=== PATIENT | female | born 1995 | race African-American/Black ===

== ENCOUNTER 2017-03-07 15:08 | Emergency (ER) | payer OTHER ==
[2017-03-07 15:16] VITALS: BP 109/74
--- NOTE | 2017-03-07 15:22 | ED ---
Lower Extremity - HPI Summary HPI Summary: 22 YEAR OLD FEMALE PRESENTS WITH COMPLAINS OF RIGHT KNEE PAIN AFTER DISLOCATION. - History of Current Complaint Chief Complaint: UCLowerExtremity Stated Complaint: KNEE INJURY Time Seen by Provider: 03/07/17 15:17 Hx Obtained From: Patient Hx Last Menstrual Period: 03/01/17 Onset of Pain: Hours Severity Initially: Moderate Severity Currently: Moderate Pain Scale Used: 0-10 Numeric - 5 - Allergies/Home Medications Allergies/Adverse Reactions: Allergies Allergy/AdvReac Type Severity Reaction Status Date / Time No Known Allergies Allergy Verified 03/07/17 15:15 Home Medications: Home Medications Control 03/07/17 [History] Ferrous Sulfate [Iron (Ferrous Sulfate)] 50 mg PO 03/07/17 [History] Ibuprofen [Advil] 200 mg PO 03/07/17 [History] PMH/Surg Hx/FS Hx/Imm Hx Previously Healthy: Yes Infectious Disease History: No Infectious Disease History: Denies: Traveled Outside the [place] in Last 30 Days - Social History Alcohol Use: Rare Substance Use Type: Reports: None Smoking Status (MU): Never Smoked Tobacco Review of Systems Constitutional: Negative Eyes: Negative ENT: Negative Cardiovascular: Negative Respiratory: Negative Gastrointestinal: Negative Genitourinary: Negative Musculoskeletal: Negative Skin: Negative Neurological: Negative All Other Systems Reviewed And Are Negative: Yes Physical Exam Triage Information Reviewed: Yes Vital Signs On Initial Exam: Initial Vitals Temp Pulse Resp BP Pulse Ox 37.6 C 90 16 109/74 100 03/07/17 15:11 03/07/17 15:11 03/07/17 15:11 03/07/17 15:11 03/07/17 15:11 Vital Signs Reviewed: Yes Skin: Positive: Warm Head/Face: Positive: Normal Head/Face Inspection Eyes: Positive: Normal ENT: Positive: Normal ENT inspection Cardiovascular: Positive: Normal Abdomen Description: Positive: Nontender Musculoskeletal: Positive: Other - RIGHT KNEE DISLOCATION Diagnostics - Vital Signs Vital Signs Temp Pulse Resp BP Pulse Ox 03/07/17 15:11 37.6 C 90 16 109/74 100 - Laboratory Lab Statement: Any lab studies that have been ordered have been reviewed, and results considered in the medical decision making process. Lower Extremity Course/Dx - Diagnoses Provider Diagnoses: Knee dislocation Discharge - Discharge Plan Condition: Stable Disposition: HOME Prescriptions: Ibuprofen TAB* [Motrin TAB* 800 MG] 800 mg PO Q8H PRN #30 tab PRN Reason: Pain Patient Education Materials: Knee Pain (ED) Referrals: No Primary Care Phys,NOPCP [Primary Care Provider] - Teresa Saul MD [Medical Doctor] -
--- NOTE | 2017-03-07 16:09 | RAD ---
INDICATION: Right knee dislocation. TECHNIQUE: 4 views of the right knee were obtained. FINDINGS: The bones are in normal alignment. No joint effusion or fracture is seen. Joint spaces appear maintained. IMPRESSION: NO EVIDENCE FOR FRACTURE.
== END 2017-03-07 16:19 | disposition home or self-care (01) ==
LOC: UCEAST 15:08
DX: S83.104A Unspecified dislocation of right knee, initial encounter (principal); X58.XXXA Exposure to other specified factors, initial encounter; Y93.9 Activity, unspecified; Y92.9 Unspecified place or not applicable
CPT/HCPCS: 99213; G0463

== ENCOUNTER 2017-03-19 14:20 | Emergency (ER) | payer OTHER ==
--- NOTE | 2017-03-19 18:58 | RAD ---
INDICATION: Intermittent palpitations. COMPARISON: No relevant prior exams available on the [facility] PACS for comparison. TECHNIQUE: Dual energy PA and routine lateral views of the chest were obtained. REPORT: Clear lungs and pleural spaces. Negative for pneumothorax. The heart, pulmonary vasculature, and mediastinal contours are unremarkable. Unremarkable osseous structures and soft tissue contours. IMPRESSION: No evidence for acute intrathoracic disease.
[2017-03-19 19:23] LABS: Hematocrit 43 % (35-47); Hemoglobin 14.2 g/dl (12.0-16.0); Mean Corpuscular HGB Conc 33 g/dl (31-36); Mean Corpuscular Hemoglobin 29 pg (27-31); Mean Corpuscular Volume 85 fL (80-97); Mean Platelet Volume 10 um3 (7.4-10.4); Red Cell Distribution Width 20 % (10.5-15); White Blood Count 8.2 10^3/ul (3.5-10.8)
[2017-03-19 19:34] LABS: Albumin 4.3 g/dL (3.2-5.2); BUN/Creatinine Ratio 7.2 (8-20); Calcium 9.3 mg/dL (8.6-10.3); EGFR African American 109.6 (>60); EGFR Non-African American 85.2 (>60); Globulin 3.6 g/dL (2-4); Magnesium 1.9 mg/dL (1.9-2.7); Potassium 3.5 mmol/L (3.5-5.0); Total Bilirubin 0.2 mg/dL (0.2-1.0); Total Protein 7.9 g/dL (6.4-8.9)
[2017-03-19 20:03] LABS: TSH (Thyroid Stimulating Horm) 2.08 mcIU/mL (0.34-5.60)
[2017-03-19 20:57] VITALS: BP 121/85
--- NOTE | 2017-03-20 02:15 | ED ---
Nikki Armendariz Edward, scribed for Lyndsey Silva MD on 03/19/17 at 1716 . Palpitations / Dysrhythmia - HPI Summary HPI Summary: 22 y/o female presents to the ED c/o palpitations described as heart fluttering starting this morning. Pt also c/o chronic dizziness and lightheadedness that became worse in the past couple of days. The dizziness and lightheadedness is aggravated when the pt stands up too quickly. Associated sx: SOB, mild CP this morning lasting 30 minutes that resolved spontaneously, diffuse body pain, nonproductive cough, and nausea when she eats. Last week the pt also dislocated her R kneecap. Pt states she has been "exhausted" recently. Pt is accompanied by her fiance and [id number]. PMHx anemia (iron deficiency). FHx sister - anemia (not iron deficiency), mother - multiple myeloma. PCP [facility]. Past medications reviewed on visit - pt takes iron supplements and is on control to control her periods. Pt states she gets heavy periods. - History of Current Complaint Chief Complaint: EDDysrhythmPalp Hx Obtained From: Patient Onset/Duration: Lasting Hours - this morning Character: Fluttering Aggravating: Position - Standing up too quickly Alleviating: Nothing Associated Signs & Symptoms: Lightheadedness, Dizzy, Shortness of Breath, Nausea - Allergy/Home Medications Allergies/Adverse Reactions: Allergies Allergy/AdvReac Type Severity Reaction Status Date / Time No Known Allergies Allergy Verified 03/07/17 15:15 PMH/Surg Hx/FS Hx/Imm Hx Previously Healthy: No Endocrine/Hematology History: Reports: Hx Anemia History: Reports: Other Problems/Disorders - Heavy periods Musculoskeletal History: Reports: Hx Orthopedic Injury - Dislocation of R kneecap - Surgical History Surgery Procedure, Year, and Place: N/A Infectious Disease History: Yes Infectious Disease History: Denies: Traveled Outside the [place] in Last 30 Days - Family History Known Family History: Positive: Blood Disorder - Sister - anemia, receives blood transfusions, Other - Mother - multiple myeloma - Social History Alcohol Use: Rare Hx Substance Use: No Substance Use Type: Reports: None Hx Tobacco Use: No Smoking Status (MU): Never Smoked Tobacco Review of Systems Constitutional: Negative Eyes: Negative ENT: Negative Positive: Palpitations. Negative: Chest Pain Positive: Shortness Of Breath, Cough Positive: Nausea - when she eats Genitourinary: Negative Positive: Arthralgia - diffuse body and joint pains Skin: Negative Neurological: Negative Psychological: Normal All Other Systems Reviewed And Are Negative: Yes Physical Exam - Summary Physical Exam Summary: Appearance: Well-appearing, no pain distress, Well-nourished Skin: Warm, color reflects adequate perfusion Head: Normal Head/Face Eyes: Conjunctiva clear ENT: Normal Neck: Supple Respiratory: Lungs clear, Normal breath sounds, no respiratory distress Cardio: RRR, No murmur, pulses normal, brisk capillary refill Abdomen: soft, nontender Bowel sounds: present Musculoskeletal: Strength Intact/ ROM intact Neuro: Alert, muscle tone normal, facial symmetry, speech normal, sensory/motor intact Triage Information Reviewed: Yes Vital Signs On Initial Exam: Initial Vitals Temp Pulse Resp BP Pulse Ox 99.1 F 65 12 118/77 92 03/19/17 14:20 03/19/17 14:20 03/19/17 14:20 03/19/17 14:20 03/19/17 14:20 Vital Signs Reviewed: Yes - [place] Coma Scale Coma Scale Total: 15 Diagnostics - Vital Signs Vital Signs Temp Pulse Resp BP Pulse Ox 03/19/17 16:51 69 20 100 03/19/17 14:20 99.1 F 65 12 118/77 92 - Laboratory Lab Results: Lab Results 03/19/17 03/19/17 03/19/17 Range/Units 18:55 18:55 18:55 WBC 8.2 (3.5-10.8) 10^3/ul RBC 5.00 (4.0-5.4) 10^6/ul Hgb 14.2 (12.0-16.0) g/dl Hct 43 (35-47) % MCV 85 (80-97) fL MCH 29 (27-31) pg MCHC 33 (31-36) g/dl RDW 20 H (10.5-15) % Plt Count 135 L (150-450) 10^3/ul MPV 10 (7.4-10.4) um3 Neut % (Auto) 70.2 (38-83) % Lymph % (Auto) 23.1 L (25-47) % [place] % (Auto) 4.0 (1-9) % Eos % (Auto) 1.9 (0-6) % Baso % (Auto) 0.8 (0-2) % Absolute Neuts (auto) 5.7 (1.5-7.7) 10^3/ul Absolute Lymphs (auto) 1.9 (1.0-4.8) 10^3/ul Absolute Monos (auto) 0.3 (0-0.8) 10^3/ul Absolute Eos (auto) 0.2 (0-0.6) 10^3/ul Absolute Basos (auto) 0.1 (0-0.2) 10^3/ul Absolute Nucleated RBC 0.01 10^3/ul Nucleated RBC % 0.1 INR (Anticoag Therapy) (0.89-1.11) D-Dimer, Quantitative (Less Than 230) ng/mL Sodium 135 (133-145) mmol/L Potassium 3.5 (3.5-5.0) mmol/L Chloride 105 (101-111) mmol/L Carbon Dioxide 24 (22-32) mmol/L Anion Gap 6 (2-11) mmol/L BUN 6 (6-24) mg/dL Creatinine 0.83 (0.51-0.95) mg/dL Est GFR ( Amer) 109.6 (>60) Est GFR (Non-Af Amer) 85.2 (>60) BUN/Creatinine Ratio 7.2 L (8-20) Glucose 107 H (70-100) mg/dL Lactic Acid 1.4 (0.5-2.0) mmol/L Calcium 9.3 (8.6-10.3) mg/dL Magnesium 1.9 (1.9-2.7) mg/dL Total Bilirubin 0.20 (0.2-1.0) mg/dL AST 15 (13-39) U/L ALT 10 (7-52) U/L Alkaline Phosphatase 54 (34-104) U/L Total Creatine Kinase 186 (10-223) U/L CK-MB (CK-2) 0.6 (0.6-6.3) ng/mL Troponin I 0.00 (<0.04) ng/mL Total Protein 7.9 (6.4-8.9) g/dL Albumin 4.3 (3.2-5.2) g/dL Globulin 3.6 (2-4) g/dL Albumin/Globulin Ratio 1.2 (1-3) TSH 2.08 (0.34-5.60) mcIU/mL 03/19/17 Range/Units 18:55 WBC (3.5-10.8) 10^3/ul RBC (4.0-5.4) 10^6/ul Hgb (12.0-16.0) g/dl Hct (35-47) % MCV (80-97) fL MCH (27-31) pg MCHC (31-36) g/dl RDW (10.5-15) % Plt Count (150-450) 10^3/ul MPV (7.4-10.4) um3 Neut % (Auto) (38-83) % Lymph % (Auto) (25-47) % [place] % (Auto) (1-9) % Eos % (Auto) (0-6) % Baso % (Auto) (0-2) % Absolute Neuts (auto) (1.5-7.7) 10^3/ul Absolute Lymphs (auto) (1.0-4.8) 10^3/ul Absolute Monos (auto) (0-0.8) 10^3/ul Absolute Eos (auto) (0-0.6) 10^3/ul Absolute Basos (auto) (0-0.2) 10^3/ul Absolute Nucleated RBC 10^3/ul Nucleated RBC % INR (Anticoag Therapy) 0.96 (0.89-1.11) D-Dimer, Quantitative < 200 (Less Than 230) ng/mL Sodium (133-145) mmol/L Potassium (3.5-5.0) mmol/L Chloride (101-111) mmol/L Carbon Dioxide (22-32) mmol/L Anion Gap (2-11) mmol/L BUN (6-24) mg/dL Creatinine (0.51-0.95) mg/dL Est GFR ( Amer) (>60) Est GFR (Non-Af Amer) (>60) BUN/Creatinine Ratio (8-20) Glucose (70-100) mg/dL Lactic Acid (0.5-2.0) mmol/L Calcium (8.6-10.3) mg/dL Magnesium (1.9-2.7) mg/dL Total Bilirubin (0.2-1.0) mg/dL AST (13-39) U/L ALT (7-52) U/L Alkaline Phosphatase (34-104) U/L Total Creatine Kinase (10-223) U/L CK-MB (CK-2) (0.6-6.3) ng/mL Troponin I (<0.04) ng/mL Total Protein (6.4-8.9) g/dL Albumin (3.2-5.2) g/dL Globulin (2-4) g/dL Albumin/Globulin Ratio (1-3) TSH (0.34-5.60) mcIU/mL Result Diagrams: 03/19/17 18:55 03/19/17 18:55 Lab Statement: Any lab studies that have been ordered have been reviewed, and results considered in the medical decision making process. - Radiology CXR Xray Interpretation: No Acute Changes - No evidence for acute intrathoracic disease. Radiology Interpretation Completed By: Radiologist - Additional Comments Diagnostic Additional Comments: EKG - 14:27 - Sinus arrhythmia @ 74 BPM. NORMAL AV, IV, QTC and AXIS. NO PRIOR EKG TO COMPARE Re-Evaluation - Re-Evaluation 1 Re-Evaluation Time: 20:51 Change: Improved Comment: Discuss plan of care. Pt reports no pain or palpitations. Pt will be d/ c home. Pt understands and agrees to f/u with Dr. Gregory. Course/Dx - Course Assessment/Plan: 22 y/o female presents to the ED c/o palpitations described as heart fluttering starting this morning. Pt also c/o chronic dizziness and lightheadedness that became worse in the past couple of days. The dizziness and lightheadedness is aggravated when the pt stands up too quickly. Associated sx: SOB, mild CP this morning lasting 30 minutes that resolved spontaneously, diffuse body pain, nonproductive cough, and nausea when she eats. Last week the pt also dislocated her R kneecap. Pt states she has been "exhausted" recently. Pt is accompanied by her fiance and [id number]. PMHx anemia (iron deficiency) . FHx sister - anemia (not iron deficiency), mother - multiple myeloma. PCP [facility]. Past medications reviewed on visit - pt takes iron supplements and is on control to control her periods. Pt states she gets heavy periods. EKG - 14:27 - Sinus arrhythmia @ 74 BPM. NORMAL AV, IV, QTC and AXIS. NO PRIOR EKG TO COMPARE. CXR SHOWS No evidence for acute intrathoracic disease. TEST RESULTS WNL. Pt will be d/c home with f/u with Dr. Gregory. On re-eval the pt reports no pain or palpitations. Pt understands and agrees. - Diagnoses Provider Diagnoses: Palpitations Discharge - Discharge Plan Condition: Stable Disposition: HOME Patient Education Materials: Palpitations (ED) Referrals: Lester Gregory MD [Medical Doctor] - 2 Days (PLEASE F/U IN 2 DAYS) Additional Instructions: PLEASE RETURN TO THE ED FOR RETURN OR WORSENING SYMPTOMS The documentation as recorded by the Nikki huynh Edward accurately reflects the service I personally performed and the decisions made by , Lyndsey Silva MD.
== END 2017-03-19 20:57 | disposition home or self-care (01) ==
LOC: ED 14:20
DX: R00.2 Palpitations (principal); R42 Dizziness and giddiness; R06.02 Shortness of breath; R11.0 Nausea
CPT/HCPCS: 36415; 71020; 80053; 82550; 82553; 83605; 83735; 84443; 84484; 85025; 85379; 85610; 93005; 99283

== ENCOUNTER 2017-07-01 21:10 | Emergency (ER) | payer OTHER ==
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
--- OUTSIDE RECORDS SUMMARY | 2017-07-01 21:16 | XMS REPORT ---
:1995 External Reference #:[id number] Author Organization [facility] Address [address] [address] Phone [phone] Care Team Providers Name Role Phone Lester Gregory MD Primary Care Physician Unavailable Payers Type Date Identification Numbers Payment Provider Subscriber Commercial Effective: Policy Number: [id number] [employer]/Robbi Dickerson 2017 [facility] PayID: [id number] [address] [address] [place] [address] Problems Date Description Provider Status Onset: 04/17/2017 [...] apply to M54.6 Emil 2018 s affected [facility], area 12 M.D. hours on, 12 hours off Iron Slow 02/07/ Active Tablets 143(45Fe) 30tabs 1 tab po in D50.9 Zsofia Release 2017 ER mg the Franky, morning. NURSE ASSESSOR Norethindrone 01/10/ Active Tablets 1-20mg-mcg 84tabs take as N92.0 Zsofia Acetate/Ethinyl 2017 instructed Franky, Estradiol/Megan NURSE ASSESSOR us Fumarate N92.0 Ranitidine HCL Active Unknown Cymbalta Active Unknown Vitamin D 02/07/2017 - Hx Capsules 34127Gv 8caps take 1 E55. Zsofia (Ergocalciferol 06/17/2016 it capsule a 9 [facility] WilkinsP ) week for 8 weeks Vitamin D3 01/10/2017 - Hx Capsules 5000Uni 90cap 1 by mouth E55. Zsofia Maximum 02/07/2017 t s every day 9 Franky, [facility] Strength Ferrous 01/10/2017 - Hx Tablets 324(37. 90tab 1 by mouth D50. Zsofia Gluconate 02/10/2017 5Fe) mg s every day 9 Franky, [facility] Ibuprofen - Hx Capsules 200mg as needed Unknown 06/27/2017 Vital Signs Date Vital Result Comment 06/29/2017 Height 64 inches 5'4" Weight 141.00 lb Heart Rate 80 /min Respiratory Rate 15 /min Pain Level 3 BMI (Body Mass Index) 24.2 kg/m2 06/27/2017 Height 64 inches 5'4" Weight 141.00 [...] Test Result H/L Range Note Laboratory test 06/28/2017 Hla B27 <pending> finding Laboratory test 06/28/2017 Neutrophil Cytoplasmic <pending> finding AB Angiotensin Converting Enzyme <pending> Aso (Antistreptolysin O) Titer Negative IU/mL <200 Iu/mL 1 CBC Auto Diff 06/28/2017 White Blood Count 10.8 10^3/uL 3.5-10.8 Red Blood Count 4.63 10^6/uL 4.0-5.4 Hemoglobin 14.5 g/dL 12.0-16.0 Hematocrit 43 % 35-47 Mean Corpuscular Volume 92 fL 80-97 Mean Corpuscular Hemoglobin 31 pg 27-31 Mean Corpuscular HGB Conc 34 g/dL 31-36 Red Cell Distribution Width 13 % 10.5-15 Platelet Count 152 10^3/uL 150-450 Mean Platelet Volume 9 um3 7.4-10.4 Abs Neutrophils 8.4 10^3/uL High 1.5-7.7 Abs Lymphocytes 1.5 10^3/uL 1.0-4.8 Abs Monocytes 0.6 10^3/uL 0-0.8 Abs Eosinophils 0.2 10^3/uL 0-0.6 Abs Basophils 0 10^3/uL 0-0.2 Abs Nucleated RBC 0 10^3/uL Granulocyte % 77.7 % 38-83 Lymphocyte % 14.3 % Low 25-47 Monocyte % 5.8 % 1-9 Eosinophil % 1.8 % 0-6 Basophil % 0.4 % 0-2 Nucleated Red Blood Cells % 0.1 Laboratory test finding 06/28/2017 Erythrocyte Sed Rate 14 mm/Hr 0-14 2 C Reactive Protein <pending> Sickle Cell Screen Negative Negative 3 CK Isoenzymes <pending> Rheumatoid Factor <pending> Free T4 (Free Thyroxine) <pending> Thyroperoxidase AB <pending> Laboratory test finding 12/27/2016 Vitamin D Total 25(Oh) 10.4 ng/mL Low 30-50 4 Iron & Iron Binding 12/27/2016 Iron 22 g/dL Low 50-212 4 Capacity Unsaturated Iron Binding 453 g/dL 4 Total Iron Binding Capacity 475 g/dL High 250-450 4 % Iron Saturation 5 % Low 15-55 4 Laboratory test finding 12/27/2016 TSH (Thyroid Stim Horm) 0.70 mcIU/mL 0.34-5.60 4 Vitamin B12 501 pg/mL 180-914 4, 5 CBC Auto Diff 12/27/2016 White Blood Count 5.3 10^3/uL 3.5-10.8 4 Red Blood Count 4.39 10^6/uL 4.0-5.4 4 Hemoglobin 10.0 g/dL Low 12.0-16.0 4 Hematocrit 33 % Low 35-47 4 Mean Corpuscular Volume 76 fL Low 80-97 4 Mean Corpuscular Hemoglobin 23 pg Low 27-31 4 Mean Corpuscular HGB Conc 30 g/dL Low 31-36 4 Red Cell Distribution Width 17 % High 10.5-15 4 Platelet Count 147 10^3/uL Low 150-450 4 Mean Platelet Volume 10 um3 7.4-10.4 4 Abs Neutrophils 3.0 10^3/uL 1.5-7.7 4 Abs Lymphocytes 1.6 10^3/uL 1.0-4.8 4 Abs Monocytes 0.4 10^3/uL 0-0.8 4 Abs Eosinophils 0.1 10^3/uL 0-0.6 4 Abs Basophils 0 10^3/uL 0-0.2 4 Abs Nucleated RBC 0 10^3/uL 4 Granulocyte % 57.6 % 38-83 4 Lymphocyte % 31.0 % 25-47 4 Monocyte % 8.0 % 1-9 4 Eosinophil % 2.5 % 0-6 4 Basophil % 0.9 % 0-2 4 Nucleated Red Blood Cells % 0 4 1 Normal values may vary with age, season and geographic area. Titers above upper limits may be indicative of infection, however only a two dilution rise in titer is required to be considered significant. ASO titer will usually rise above upper limits within one week of exposure, increase to peak levels at 3-5 weeks and return to baseline level at 6-12 twelve months. 2 Please check labs this week 3 Please check labs this week 4 has f/u in 3 days 5 Normal Range 180 to 914 Indeterminate Range 145 to 180 Deficient Range <145 Procedures Description No Information Encounters Type Date Location Provider CPT E/M Dx Office Visit 05/18/2017 [facility] [address] Q66.89 2:30p Of [facility] Office Visit 04/20/2017 [place] [address] Q66.89 1:45p Of C.M.AEvelio Office Visit 04/17/2017 [place] [address] M22.01 10:15a Of [facility]. Office Visit 03/29/2017 [facility] Srini [place] [address]68 Q66.89 10:30a Of [facility] Office Visit 03/15/2017 [place] [address] M25.561 1:30p Of C.M.A. M22.01 M21.40 Office Visit 02/07/2017 11:40a [facility] - [place] [address] E55.9 D50.9 N92.0 Office Visit 01/10/2017 9:40a [facility] - Kirstie WilkinsB[place] [address] N92.0 E55.9 Office Visit 12/27/2016 11:00a [facility] Cynthiamegan Wilkins, [place] [address] R53[address] N92.0 E55.9 R48.8 Plan of Care 06/27/2017 - Emil Ferreira M.D.M54.2 AnhiafaxrhpA19.6 Pain in thoracic spineNew Medication:Lidoderm 5 %D64.9 Anemia, pypayqrnvnxB11.4 Inflammatory sblmbhmnyyzhiptH62.8 Other disturbances of skin aftubvbjgX67.1 MyalgiaFollow up: Follow up in 3 weeks or sooner if needed
[2017-07-01 21:22] VITALS: BP 133/70
[2017-07-01] MEDS ORDERED: predniSONE TAB* 20 MG PO ONE (21:45)
[2017-07-01] MEDS ORDERED: Benzonatate CAP* 100 MG PO ONE ×2 (21:46→21:47)
[2017-07-01] MEDS ORDERED: Acetaminop/Codeine 30 MG TAB* 1 TAB (300 MG/30 MG) PO ONE (21:48)
--- NOTE | 2017-07-01 21:56 | UC ---
Alex Armendariz Stephanie, scribed for Zachary Franks MD on 07/01/17 at 2147 . Respiratory Complaint HPI - HPI Summary HPI Summary: The pt is a 22 y/o F presenting to with c/o cough that began in march 2017 but is worse today. Symptoms include CP with cough, SOB and throat itchiness. The pt denies throat and ankle swelling. Denies feeling like a narrowing airway. The pt is afraid to take a deep breath because it initiates a cough. The pt took one course of antibiotics ending last week. She rates the pain as a 4 in severity. - History of Current Complaint Chief Complaint: UCRespiratory Stated Complaint: COUGH Time Seen by Provider: 07/01/17 21:27 Hx Obtained From: Patient, Family/Warehouse Director Hx Last Menstrual Period: 3 wks ago Onset/Duration: Lasting Weeks, Still Present - approximately 13, Worse Since - today Severity Currently: Mild Pain Intensity: 4 Pain Scale Used: 0-10 Numeric Character: Cough: Nonproductive Aggravating Factors: Nothing Alleviating Factors: Nothing Associated Signs And Symptoms: Negative: Wheezing - Allergies/Home Medications Allergies/Adverse Reactions: Allergies Allergy/AdvReac Type Severity Reaction Status Date / Time No Known Allergies Allergy Verified 07/01/17 21:23 PMH/Surg Hx/FS Hx/Imm Hx Previously Healthy: Yes - Pt denies past medical history. Respiratory History: Other - Negative: asthma Other Respiratory History: COUGH - Surgical History Surgical History: None Surgery Procedure, Year, and Place: no surg hx - Family History Known Family History: Positive: Diabetes, Blood Disorder - Sister - anemia, receives blood transfusions, Other - Mother - multiple myeloma - Social History Occupation: Student Lives: Dormitory/Roommates Alcohol Use: Occasionally Substance Use Type: None Smoking Status (MU): Never Smoked Tobacco Have You Smoked in the Last Year: No Review of Systems ENT: Other - throat itchiness Respiratory: Shortness Of Breath, Cough Cardiovascular: Chest Pain All Other Systems Reviewed And Are Negative: Yes Physical Exam Triage Information Reviewed: Yes Vital Signs: Initial Vital Signs Temp 98.1 F 07/01/17 21:18 Pulse 87 07/01/17 21:18 Resp 18 07/01/17 21:18 BP 133/70 07/01/17 21:18 Pulse Ox 100 07/01/17 21:18 Vital Signs Reviewed: Yes - Additional Comments General: well-appearing, no pain distress Skin: warm, color reflects adequate perfusion, dry Head: normal Eyes: EOMI, BLAIRE ENT: TMs nml, Posterior pharynx open, uvula midline, voice is quiet. Neck: supple, nontender Respiratory: CTA, breath sounds present, no stridor Cardiovascular: RRR Abdomen: soft, nontender Bowel: present Musculoskeletal: normal, strength/ROM intact Neurological: normal, sensory/motor intact, A&O x3 Psychological: affect/mood appropriate Diagnostic Evaluation - Laboratory O2 Sat by Pulse Oximetry: 100 Respiratory Course/Dx - Course Course Of Treatment: Medications reviewed. PATIENT REPORTS A CHRONIC COUGH SINCE MAR 2017. SHE REPORTS BEING EVALUATED FOR THE COUGH. IT IS WORSE TONIGHT. SHE DENIES FEELING LIKE HERE AIRWAY IS CLOSING AND DENIES WHEEZING OR STRIDOR. WE DISCUSSED GOING TO THE ED FOR ANY AIRWAY COMPROMISE. F/U PMD; GO TO ED IF WORSE. - Differential Dx/Diagnosis Provider Diagnoses: COUGH Discharge - Discharge Plan Condition: Stable Disposition: HOME Prescriptions: Acetaminop/Codeine 30 MG TAB* [Tylenol/Codeine 30 MG TAB*] 1 tab PO Q6H PRN #15 tab MDD 4 PRN Reason: Cough Benzonatate CAP* [Tessalon 100 MG CAP*] 100 mg PO TID PRN #15 cap PRN Reason: Cough Patient Education Materials: Acute Cough (ED) Referrals: Lester Gregory MD [Primary Care Provider] - Additional Instructions: FOLLOW UP WITH YOUR DOCTOR. GO TO THE EMERGENCY DEPARTMENT FOR ANY WORSENING OF YOUR CONDITION; YOU FEEL LIKE YOUR AIRWAY IS CLOSING OR QUESTIONS OR CONCERNS. The documentation as recorded by the Alex huynh Stephanie accurately reflects the service I personally performed and the decisions made by me, Zachary Franks MD.
== END 2017-07-01 22:09 | disposition home or self-care (01) ==
LOC: UCEAST 21:10
DX: R05 Cough (principal); R07.89 Other chest pain; R06.02 Shortness of breath
CPT/HCPCS: 99213; A9270-GY; G0463; J7512

== ENCOUNTER 2017-08-01 10:05 | Emergency (ER) | payer OTHER ==
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
[2017-08-01] MEDS ORDERED: predniSONE TAB* 20 MG PO ONE (12:12)
[2017-08-01] MEDS ORDERED: Albuterol/Ipratropium NEB.SOL* Albuterol 2.5 MG/Ipratropium 0.5 MG 3 ML INH ONE (12:12)
--- NOTE | 2017-08-01 13:44 | ED ---
Flaca Armendariz Julia, scribed for Ramin Philippe on 08/01/17 at 1229 . Respiratory - HPI Summary HPI Summary: This patient is a 22 year old F presenting to [facility] accompanied by her mother with a chief complaint of SOB since 10:00 after a pulmonary function test. Patient reports current chest tightness and cough for months. Patient rates pain severity 7/10. She had two doses of albuterol via nebulizer treatment without relief. Patient is currently taking oral contraceptives. - History of Current Complaint Chief Complaint: EDAsthma Stated Complaint: DIFFICULTY BREATHING Time Seen by Provider: 08/01/17 12:03 Hx Obtained From: Patient Onset/Duration: Lasting Hours Timing: Constant Pain Intensity: 7 Sputum Amount: None Aggravating Factor(s): Other - recent pulmonary function test Alleviating Factor(s): Nothing Associated Signs and Symptoms: Chest Pain with Cough - Allergy/Home Medications Allergies/Adverse Reactions: Allergies Allergy/AdvReac Type Severity Reaction Status Date / Time No Known Allergies Allergy Verified 07/01/17 21:23 PMH/Surg Hx/FS Hx/Imm Hx Endocrine/Hematology History: Reports: Hx Anemia Denies: Hx Diabetes Cardiovascular History: Denies: Hx Hypertension, Hx Pacemaker/ICD Respiratory History: Denies: Hx Asthma History: Reports: Other Problems/Disorders - Heavy periods Musculoskeletal History: Reports: Hx Orthopedic Injury - Dislocation of R kneecap Sensory History: Reports: Hx Contacts or Glasses Denies: Hx Hearing Aid, Other Sensory Impairments Opthamlomology History: Reports: Hx Contacts or Glasses Denies: Other Sensory Impairments Neurological History: Reports: Hx Headaches Psychiatric History: Reports: Hx Anxiety Denies: Hx Panic Disorder - Surgical History Surgery Procedure, Year, and Place: no surg hx Infectious Disease History: No Infectious Disease History: Denies: Traveled Outside the [place] in Last 30 Days - Family History Known Family History: Positive: Diabetes, Blood Disorder - Sister - anemia, receives blood transfusions, Other - Mother - multiple myeloma - Social History Alcohol Use: Occasionally Hx Substance Use: No Substance Use Type: Reports: None Hx Tobacco Use: No Smoking Status (MU): Never Smoked Tobacco Have You Smoked in the Last Year: No Review of Systems Cardiovascular: Other - chest tightness Positive: Shortness Of Breath, Cough All Other Systems Reviewed And Are Negative: Yes Physical Exam - Summary Physical Exam Summary: Appearance: Well appearing, no pain distress Skin: warm, dry, reflects adequate perfusion Head/face: normal Eyes: EOMI, BLAIRE ENT: normal Neck: supple, non-tender Respiratory: CTA, breath sounds present, no wheezes Cardiovascular: RRR, pulses symmetrical Abdomen: non-tender, soft Bowel: present Musculoskeletal: normal, strength/ROM intact Neuro: normal, sensory motor intact, A&Ox3 Triage Information Reviewed: Yes Vital Signs On Initial Exam: Initial Vitals Temp Pulse Resp BP Pulse Ox 98.9 F 113 22 129/83 99 08/01/17 10:07 08/01/17 10:07 08/01/17 10:07 08/01/17 10:07 08/01/17 10:07 Vital Signs Reviewed: Yes Diagnostics - Vital Signs Vital Signs Temp Pulse Resp BP Pulse Ox 08/01/17 10:07 98.9 F 113 22 129/83 99 - Laboratory Lab Statement: Any lab studies that have been ordered have been reviewed, and results considered in the medical decision making process. Disposition - Course Course Of Treatment: Patient presnts with SOB since 10:00 after a pulmonary function test. Patient reports current chest tightness and cough for months. She had two doses of albuterol via nebulizer treatment without relief. Patient is currently taking oral contraceptives. Patient is given Prednisone and 2 albuteral treatments vis nebulizer. Patient left AMA without recieving chest imaging. - Differential Dx - Cardiopulmonary Differential Diagnoses - Cardiopulmonary: Acute Dyspnea, Asthma, Bronchitis, Pulmonary Embolism - Diagnoses Provider Diagnoses: Bronchospasm Discharge - Discharge Plan Condition: Stable Disposition: AGAINST MEDICAL ADVICE Prescriptions: Albuterol HFA INHALER* [Ventolin HFA Inhaler*] 2 puff INH Q6H PRN #1 mdi MDD 4 PRN Reason: Sob/Wheezing predniSONE TAB* [Deltasone TAB*] 40 mg PO DAILY #5 tab Patient Education Materials: Bronchospasm (ED) Referrals: Lester Gregory MD [Primary Care Provider] - 3 Days The documentation as recorded by the Flaca huynh Julia accurately reflects the service I personally performed and the decisions made by Denae covarrubias Emmanuel.
[2017-08-01 13:57] VITALS: BP 128/76
== END 2017-08-01 13:00 | disposition left against medical advice (07) ==
LOC: ED 10:05
DX: J98.01 Acute bronchospasm (principal); R06.02 Shortness of breath; R07.9 Chest pain, unspecified; D64.9 Anemia, unspecified
CPT/HCPCS: 94640; 99282; A9270-GY; J7512

== ENCOUNTER 2017-08-01 19:41 | Emergency (ER) | payer OTHER ==
--- OUTSIDE RECORDS SUMMARY | 2017-08-01 19:48 | XMS REPORT ---
:1995 External Reference #:[id number] Author Organization [facility] [employer] Address [address] [address] Phone [phone] Care Team Providers Name Role Phone Lester Gregory MD Primary Care Physician Unavailable Payers Type Date Identification Numbers Payment Provider Subscriber Commercial Effective: Policy Number: [id number] [employer] Christen Dickerson 2017 Medicaid PayID: [id number] [address] [address] [place] [address] Problems Date Description Provider Status Onset: 04/17/2017 [...] Form Strength Qnty SIG Indications Ordering Provider Meloxicam 08/01/ Active Tablets 7.5mg 30tab take one M35.7 Emil 2018 s tab twice Hanna, daily as M.D. needed for pain, avoid other nsaids Aspercreme 07/09/ Active Cream 4% 6unit apply twice M54.6 Emil W/Lidocaine 2018 s daily to Hanna, the painful M.D. joints as needed Iron Slow 02/07/ Active Tablets ER 143(45Fe) 30tab 1 tab po in D50.9 Zsofia Release 2017 mg s the Franky, morning. [employer]ATOR Ranitidine HCL / Active 150mg bid Unknown 0000 Cymbalta / Active 30mg has not Unknown 0000 started taking Catalina Fe 06/30 / Active Tablets 1-20mg-mcg qd Unknown 0000 Lidoderm 06/27/ Hx Patches 5% 30uni 1 apply to M54.6 Emil 2018 - ts affected Hanna, 07/09/ area 12 M.D. 2018 hours on, 12 hours off Vitamin D 02/07/ Hx Capsules [id number] 8caps take 1 E55.9 Zsofia (Ergocalciferol 2017 - capsule a Franky, ) 06/17/ week for 8 SKOOG OPERATOR 2017 weeks Vitamin D3 01/10/ Hx Capsules 5000Unit 90cap 1 by mouth E55.9 Zsofia Maximum 2017 - s every day Franky, Strength 02/07/ SKOOG OPERATOR 2016 Ferrous 01/10/ Hx Tablets 324(37.5Fe 90tab 1 by mouth D50.9 Zsofia Gluconate 2017 - ) mg s every day Franky, 02/10/ SKOOG OPERATOR 2017 Norethindrone 01/10/ Hx Tablets 1-20mg-mcg 84tab take as N92.0 Zsofia Acetate/Ethinyl 2017 - s instructed Franky Estradiol/Megan 07/12/ SKOOG OPERATOR us Fumarate 2017 N92.0 Ibuprofen - 06/27/2017 Hx Capsules 200mg as needed Unknown Vital Signs Date Vital Result Comment 08/01/2017 Height 64 inches 5'4" Weight 140.00 lb Heart Rate 120 /min BP Systolic Sitting 138 mmHg BP Diastolic Sitting 80 mmHg Respiratory Rate 14 /min Body Temperature 98.5 F Pain Level 6 BMI (Body Mass Index) 24.0 kg/m2 07/13/2017 Height 64 inches 5'4" Weight 137.38 [...] Creatine Kinase BB 0 % 0 6 Hla B27 06/28/2017 Hla B27 Negative 7 Hla B27 Interp See Comment 8 Connective Tissue Panel 06/28/2017 Anti-Nuclear Antibody 0.7 U 9 Cyclic Citrullinated Peptide <15.6 U 10 Interpretation See Comment 11 Neutrophil Cytoplasmic AB 06/28/2017 C-Anca Negative Negative P-Anca Negative Negative 12 Laboratory test finding 06/28/2017 Angiotensin Converting Enzyme 12 U/L 8 - 53 13 Aso (Antistreptolysin O) Titer Negative IU/mL <200 Iu/mL 14 CBC Auto Diff 06/28/2017 White Blood Count [...] 0-2 Nucleated Red Blood Cells % 0.1 Iron & Iron Binding Capacity 06/28/2017 Iron 108 g/dL 50-212 Unsaturated Iron Binding 308 g/dL Total Iron Binding Capacity 416 g/dL 250-450 % Iron Saturation 26 % 15-55 Laboratory test finding 06/28/2017 Erythrocyte Sed Rate 14 mm/Hr 0-14 15 C Reactive Protein < 1.00 mg/L < 5.00 16 Sickle Cell Screen Negative Negative 17 Celiac Panel 06/28/2017 Tissue Transglutaminase IgA Ab <1.2 U/mL 18 Immunoglobulin A 141 mg/dL 61 - 356 Celiac Interpretation See Comment 19 Celiac Hla 06/28/2017 Hla-Dqa1 SEE BELOW 20 Hla-DQB1 SEE BELOW 21 Celiac Gene Pairs Present? Yes Celiac Gene Interpretation See Comment 22 Iron & Iron Binding Capacity 12/27/2016 Iron 22 g/dL Low 50-212 23 Unsaturated Iron Binding 453 g/dL 23 Total Iron Binding Capacity 475 g/dL High 250-450 23 % Iron Saturation 5 % Low 15-55 23 Laboratory test finding 12/27/2016 TSH (Thyroid Stim [...] Nucleated Red Blood Cells % 0 23 Laboratory test finding 12/27/2016 Vitamin D Total 25(Oh) 10.4 ng/mL Low 30-50 23 1 Test Performed by: [place] [address] 2 Please check labs this week 3 Please check labs this week 4 RESULT: If CK result is <100, isoenzyme will not be performed. Test Performed by: [address] [address] 5 MM=48% Macro Type 1=48% Macro Type 2=4% 6 Test Performed by: [facility] - [address] [address] 7 REFERENCE VALUE Not Applicable 8 RESULT: HLA-B27 antigen was not detected. ADDITIONAL INFORMATION Method: Flow Cytometry Performing Laboratory IA# [id number] Test Performed by: [address] [address] 9 REFERENCE VALUE <=1.0 (Negative) 10 REFERENCE VALUE <20.0 (Negative) 11 Tests for antibodies to dsDNA and AMIRA antigens are not performed automatically unless the RONDA result is > or= 3.0 U. Studies performed at [facility] indicate that positive RONDA results <3.0 U are rarely accompanied by positive second order tests. Test Performed by: [place] [address] 12 Negative for cANCA and pANCA patterns by immunofluorescence. ADDITIONAL INFORMATION This test was developed and its performance characteristics determined by [facility] in a manner consistent with CLIA requirements. This test has not been cleared or approved by the U.S. Food and Drug Administration. Test Performed by: [place] [address] 13 Test Performed by: [place] [address] 14 Normal values may vary with age, season and geographic area. Titers above upper limits may be indicative of infection, however only a two dilution rise in titer is required to be considered significant. ASO titer will usually rise above upper limits within one week of exposure, increase to peak levels at 3-5 weeks and return to baseline level at 6-12 twelve months. 15 Please check labs this week 16 Acute inflammation: >10.00 17 Please check labs this week 18 REFERENCE VALUE <4.0 (Negative) Test Performed by: [place] [address] 19 Negative serology. Celiac disease unlikely. However, approximately 10% of patients with celiac disease are seronegative. Also, patients who are already adhering to a gluten-free diet may be seronegative. If celiac disease is highly clinically suspected, consider HLA-DQ typing. Test Performed by: [place] [address] 20 RESULT: ,03 REFERENCE VALUE Not Applicable 21 RESULT: 03:02,05:03 DQ Serologic Equivalent: 8,5 REFERENCE VALUE Not Applicable 22 These genes are permissive for celiac disease. The absence of HLA celiac permissive genes would make the presence of celiac disease unlikely. However, these genes can also be present in the normal population. ADDITIONAL INFORMATION Method: Molecular typing of HLA antigens performed using reverse SSOP and/or SSP methods, reported as serological equivalents and low to medium resolution molecular values. Performing Laboratory CLIA# [id number] Test Performed by: [address] [address] 23 has f/u in 3 days 24 Normal Range 180 to 914 Indeterminate Range 145 to 180 Deficient Range <145 Procedures Description No Information Encounters Type Date Location Provider CPT E/M Dx Office Visit 08/01/2017 [facility] Services Emil Ferreira M.D. 28776 M54.6 1:20p Of Shop Assistant D64.9 R51 M35.7 Office Visit 07/13/2017 10:00a [facility] [address] R05 Services Of Shop Assistant R06.83 Office Visit 06/29/2017 1:15p [place] [address] Q66.89 [facility] Office Visit 06/27/2017 2:00p [facility] Services Emil Ferreira M.D. 37709 M54.2 Of Shop Assistant M54.6 D64.9 R20.8 M79.1 R21 Office Visit 05/18/2017 2:30p [place] [address] Q66.89 Of [facility] Office Visit 04/20/2017 1:45p [place] [address] Q66.89 Of [facility] Office Visit 04/17/2017 10:15a [place] [address] M22.01 Of [facility] Office Visit 03/29/2017 10:30a [facility] Srini [place] [address] Q66.89 Of [place] Office Visit 03/15/2017 1:30p [place] [address] M25.561 Of [place] M22.01 M21.40 Office Visit 02/07/2017 11:40a [facility] Internal Medicine - Kaitlynnofimegan Wilkins, [facility] [address] E55.9 D50.9 N92.0 Office Visit 01/10/2017 9:40a [facility] Internal Medicine - Kaitlynnofia Franky, [employer]OOG OPERATOR [address] N92.0 E55.9 Office Visit 12/27/2016 11:00a [facility] Internal Medicine Kirstie Wilkins, SKOOG OPERATOR [address] R53[address] N92.0 E55.9 R48.8 Plan of Care Future Appointment(s):09/12/2017 11:00 am - Emil Ferreira M.D. at [facility]08/06/2017 11:00 am - Latrice Masters NEvelioPEvelio at [facility]08/01/2017 - Emil Ferreira M.D.M54.6 Pain in thoracic kboqaU12.9 Anemia, unspecifiedReferral:Dwaine Turpin MD, [id number] HeadacheNew Xrays:MRI Brain W/OM35.7 Hypermobility syndromeNew Medication: Meloxicam 7.5 mgFollow up:Follow up in 6 weeks or sooner if needed
[2017-08-01] MEDS ORDERED: Albuterol/Ipratropium NEB.SOL* Albuterol 2.5 MG/Ipratropium 0.5 MG 3 ML INH ONE (20:02)
[2017-08-01] MEDS ORDERED: Albuterol HFA INHALER* 8 gm MDI INH ONE (20:39)
[2017-08-01 20:59] VITALS: BP 128/81
--- NOTE | 2017-08-02 00:58 | ED ---
Peterson Armendariz Jennifer, scribed for Cameron Santos MD on 08/01/17 at 2007 . Asthma - HPI Summary HPI Summary: The patient is a 22 year old female who presents with shortness of breath and wheezing that began at 09:00 this morning. The patient went for a methacholine challenge and was diagnosed with asthma. She took 60 mg of Prednisone. The patient additionally complains of chest tightness and chest pain that feels like its burning. She additionally complains of numbness in both arms. - History of Current Complaint Chief Complaint: EDAsthma Stated Complaint: DIFF BREATHING Time Seen by Provider: 08/01/17 19:54 Hx Obtained From: Patient Hx Last Menstrual Period: 3 wks ago Onset/Duration: Sudden Onset, Lasting Hours - Began this morning at 09:00, Still Present Timing: Constant Initial Severity: Mild Current Severity: Mild Pain Intensity: 0 Pain Scale Used: 0-10 Numeric Aggravating Symptoms: Nothing Alleviating Symptoms: Nothing Associated Signs and Symptoms: Positive: Shortness of Breath, Other - Chest tightness, burning chest pain, numbness in both arms. - Allergy/Home Medications Allergies/Adverse Reactions: Allergies Allergy/AdvReac Type Severity Reaction Status Date / Time No Known Allergies Allergy Verified 07/01/17 21:23 PMH/Surg Hx/FS Hx/Imm Hx Endocrine/Hematology History: Reports: Hx Anemia Denies: Hx Diabetes Cardiovascular History: Denies: Hx Hypertension, Hx Pacemaker/ICD Respiratory History: Reports: Hx Asthma History: Reports: Other Problems/Disorders - Heavy periods Musculoskeletal History: Reports: Hx Orthopedic Injury - Dislocation of R kneecap Sensory History: Reports: Hx Contacts or Glasses Denies: Hx Hearing Aid, Other Sensory Impairments Opthamlomology History: Reports: Hx Contacts or Glasses Denies: Other Sensory Impairments Neurological History: Reports: Hx Headaches Psychiatric History: Reports: Hx Anxiety Denies: Hx Panic Disorder - Surgical History Surgery Procedure, Year, and Place: no surg hx Infectious Disease History: No Infectious Disease History: Denies: Traveled Outside the [place] in Last 30 Days - Family History Known Family History: Positive: Diabetes, Respiratory Disease - Hx Asthma- sister and cousins, Hx COPD-father, chronic bronchitis-Aunt, Blood Disorder - Sister - anemia, receives blood transfusions, Other - Mother - multiple myeloma - Social History Alcohol Use: Occasionally Hx Substance Use: No Substance Use Type: Reports: None Hx Tobacco Use: No Smoking Status (MU): Never Smoked Tobacco Have You Smoked in the Last Year: No Review of Systems Positive: Chest Pain - Burning, Other - Chest tightness Positive: Shortness Of Breath, Other - Wheezing Positive: Numbness - Both arms All Other Systems Reviewed And Are Negative: Yes Physical Exam - Summary Physical Exam Summary: Appearance: Well appearing, no pain distress Skin: warm, dry, reflects adequate perfusion Head/face: normal Eyes: EOMI, BLAIRE ENT: normal Neck: supple, non-tender Respiratory: CTA, breath sounds present. No wheezes but diminished globally. Cardiovascular: RRR, pulses symmetrical Abdomen: non-tender, soft Bowel: present Musculoskeletal: normal, strength/ROM intact, legs non-swollen. Neuro: normal, sensory motor intact, A&Ox3 Triage Information Reviewed: Yes Vital Signs On Initial Exam: Initial Vitals Temp Pulse Resp BP Pulse Ox 97.9 F 98 20 131/75 100 08/01/17 19:50 08/01/17 19:50 08/01/17 19:50 08/01/17 19:50 08/01/17 19:50 Vital Signs Reviewed: Yes Diagnostics - Vital Signs Vital Signs Temp Pulse Resp BP Pulse Ox 08/01/17 19:53 98 18 100 08/01/17 19:51 134/82 08/01/17 19:50 97.9 F 98 20 131/75 100 - Laboratory Lab Statement: Any lab studies that have been ordered have been reviewed, and results considered in the medical decision making process. Re-Evaluation - Re-Evaluation First Eval Re-Evaluation Time: 20:40 Change: Improved Comment: The patient is moving air better. She is ready for discharge. Asthma Course/Dx - Course Course Of Treatment: pt with 2nd visit today after methylcholine challenge. No cough or wheezing. After nebs aeration was improved. Sats always 98 or greater. Already on steroids. D/C with inhaler. - Diagnoses Provider Diagnoses: Asthma exacerbation Discharge - Discharge Plan Condition: Good Disposition: HOME Patient Education Materials: Asthma (ED) Referrals: Lester Gregory MD [Primary Care Provider] - Additional Instructions: Fill your steroid and take daily. Use the provided inhaler every 4hrs as needed. Return if worse, trouble breathing, new symptoms or other concerns. The documentation as recorded by the scribe, Nell Winkler accurately reflects the service I personally performed and the decisions made by me, Cameron Santos MD.
== END 2017-08-01 20:59 | disposition home or self-care (01) ==
LOC: ED 19:41
DX: J45.901 Unspecified asthma with (acute) exacerbation (principal); R07.89 Other chest pain; F41.9 Anxiety disorder, unspecified
CPT/HCPCS: 94640; 99283; A9270-GY

== ENCOUNTER 2017-08-18 20:32 | Emergency (ER) | payer OTHER ==
--- OUTSIDE RECORDS SUMMARY | 2017-08-18 20:38 | XMS REPORT ---
:1995 External Reference #:[id number] Author Organization [facility] Address [address] [address] Phone [phone] Care Team Providers Name Role Phone Lester Gregory MD Primary Care Physician Unavailable Payers Type Date Identification Numbers Payment Provider Subscriber Commercial Effective: Policy Number: [id number] [employer] Christen Dickerson 2017 Medicaid PayID: [id number] [address] [address] [place] [address] Problems Date Description Provider Status Onset: 04/17/2017 [...] Form Strength Qnty SIG Indications Ordering Provider Jacques Fink 08/06/ Active Aerosol 200-25mcg/ 60uni take 1 J45.32 Latrice S. 2018 Inh ts inhaled Foster, daily N.P. Meloxicam 08/01/ Active Tablets 7.5mg 30tab take [...] Release 2017 mg s the Franky, morning. [facility] Ranitidine HCL / Active 150mg bid Unknown 0000 Cymbalta / Active 30mg has not Unknown 0000 started taking Catailna Fe 06/30 / Active Tablets 1-20mg-mcg qd Unknown 0000 Ventolin HFA / Active Aerosol 108(90Base Inhale 2 Unknown 0000 ) mcg/Act Puffs By Mouth Every 6 Hours as Needed For Shortness Of Breat Lidoderm 06/27/ Hx Patches 5% 30uni 1 apply to M54.6 Emil 2017 - ts affected Hanna, 07/09/ area 12 M.D. 2018 hours on, 12 hours off Vitamin D 02/07/ Hx Capsules [id number] 8caps take 1 E55.9 Zsofia (Ergocalciferol 2017 - capsule a Franky, ) 06/17/ week for 8 STRATE[employer]IC MARKETING SPECIALIST 2017 weeks Vitamin D3 01/10/ Hx Capsules 5000Unit 90cap 1 by mouth E55.9 Zsofia Maximum 2017 - s every day Franky, Strength 02/07/ STRATE[employer] MARKETING SPECIALIST 2017 Ferrous 01/10/ Hx Tablets 324(37.5Fe 90tab 1 by mouth D50.9 Zsofia Gluconate 2017 - ) mg s every day Franky, 02/10/ STRATE[employer] MARKETING SPECIALIST 2017 Norethindrone 01/10/ Hx Tablets 1-20mg-mcg 84tab take as N92.0 Zsofia Acetate/Ethinyl 2017 - s instructed Franky Estradiol/Megan 07/12/ STRATEGIC MARKETING SPECIALIST us Fumarate 2017 N92.0 Ibuprofen - 06/27/2017 Hx Capsules 200mg as needed Unknown Vital Signs Date Vital Result Comment 08/06/2017 Height 64 inches 5'4" Weight 135.25 lb with shoes Heart Rate 90 /min BP Systolic Sitting 120 mmHg Lue reg cuff BP Diastolic Sitting 84 mmHg Lue reg cuff Respiratory Rate 16 /min O2 % BldC Oximetry 96 % On Ra BMI (Body Mass Index) 23.2 kg/m2 08/01/2017 Height 64 inches 5'4" Weight 140.00 [...] Low 30-50 23 1 Test Performed by: [place] [address] 2 Please check labs this week 3 Please check labs this week 4 RESULT: If CK result is <100, isoenzyme will not be performed. Test Performed by: [place] [address] 5 MM=48% Macro Type 1=48% Macro Type 2=4% 6 Test Performed by: [place] [address] 7 REFERENCE VALUE Not Applicable 8 RESULT: HLA-B27 antigen was not detected. ADDITIONAL INFORMATION Method: Flow Cytometry Performing Laboratory CLIA# [id number] Test Performed by: [facility] [place] [address] 9 REFERENCE VALUE <=1.0 (Negative) 10 REFERENCE VALUE <20.0 (Negative) 11 Tests for antibodies to dsDNA and AMIRA antigens are not performed automatically unless the RONDA result is > or= 3.0 U. Studies performed at [facility] indicate that positive RONDA results <3.0 U are rarely accompanied by positive second order tests. Test Performed by: [facility] [place] [address] 12 Negative for cANCA and pANCA patterns by immunofluorescence. ADDITIONAL INFORMATION This test was developed and its performance characteristics determined by [facility] in a manner consistent with CLIA requirements. This test has not been cleared or approved by the U.S. Food and Drug Administration. Test Performed by: [facility] [place] [address] 13 Test Performed by: [facility] [place] [address] 14 Normal values may vary with age, [...] REFERENCE VALUE <4.0 (Negative) Test Performed by: [address] [address] 19 Negative serology. Celiac disease unlikely. However, approximately 10% of patients with celiac disease are seronegative. Also, patients who are already adhering to a gluten-free diet may be seronegative. If celiac disease is highly clinically suspected, consider HLA-DQ typing. Test Performed by: [facility] - [address] [address] 20 RESULT: 01,03 REFERENCE VALUE Not Applicable 21 RESULT: 03:02,05:03 [...] medium resolution molecular values. Performing Laboratory CLIA# [id number] Test Performed by: [address] [address] 23 has f/u in 3 days 24 Normal Range 180 to 914 Indeterminate Range 145 to 180 Deficient Range <145 Procedures Date CPT Code Description Status 08/01/2017 95833 Bronchospasm Provocation Evalu Completed 07/30/2017 81638 Diffusing Capacity Completed 07/30/2017 71741 Plethysmography Determination Lung Volumes & Per Completed Airway Resist 07/30/2017 34841 Pulmonary Function><Bronchodil Completed 07/25/2017 86567 Sleep Study Unattended,HRT Rate,Oxygen Sat,Resp Completed Effort/Airflow Encounters Type Date Location Provider CPT E/M Dx Office Visit 08/06/2017 [facility] Latrice Masters, [address] J45.32 11:00a [facility] N.P. R05 R06.83 R06.81 Office Visit 07/13/2017 10:00a [facility] [address] R05 [facility] R06.83 Office Visit 06/29/2017 1:15p [place] [address] Q66.89 [facility] Office Visit 06/27/2017 2:00p Rheumatology Services Emil Ferreira M.D. [address] [facility] M54.6 D64.9 R20.8 M79.1 R21 Office Visit 05/18/2017 2:30p [facility] [address] Q66.89 Of [facility] Office Visit 04/20/2017 1:45p [place] [address] Q66.89 Of [facility] Office Visit 04/17/2017 10:15a [place] [address] M22.01 Of [facility] Office Visit 03/29/2017 10:30a [facility]opedic Services Srini Troy [address] Q66.89 Of [facility] Thierno Office Visit 03/15/2017 1:30p [place] [address] M25.561 Of [facility].M.AEvelio M22.01 M21.40 Office Visit 02/07/2017 11:40a [facility] Internal Medicine - [place] Mol[place] [address] E55.9 D50.9 N92.0 Office Visit 01/10/2017 9:40a [facility] Internal Medicine - [place] [address] N92.0 E55.9 Office Visit 12/27/2016 11:00a [facility] Internal Medicine B[place] [address] R53.[address] N92.0 E55.9 R48.8 Plan of Care Future Appointment(s):09/17/2017 1:30 pm - Latrice Masters N.P. at [facility]09/12/2017 11:00 am - Emil Ferreira M.D. at [facility]08/06/2017 - Latrice Masters N.P.J45.32 Mild persistent asthma with status asthmaticusNew Medication:Breo Ellipta 200-25 mcg/ InhFollow up:2 mo after sleep study.Recommendations:Start Breo once daily. Continue Ventolin inhaler 4-6hrs as needed. Contact office if you still feel like you cannot get a deep breath after 2 weeks of using Breo.R05 UjqzvQ85.83 SnoringRecommendations:Sleep study in hospital when gatcowrO51.81 Apnea, not elsewhere classified
[2017-08-18] MEDS ORDERED: predniSONE TAB* 20 MG PO ONE (20:53)
--- NOTE | 2017-08-18 20:58 | ED ---
Asthma - HPI Summary HPI Summary: 22-year-old female presents with asthma attack today. She states she is recently diagnosed with asthma and placed on inhaler and inhaled steroid. She states that cold is one of her triggers. She states she is walking back from the movies and started to have an asthma attack. She states that she started to have a coughing fit which is what has when has asthma attack. She states she was on very short of breath. She states she took her inhaler with no relief so she called EMS. She took neb in the rig and is feeling better. She states the last time she was here she had multiple treatments and had to return. She denies any fevers. She denies any recent illness. She denies any chest pain. She denies any bowel pain. She has history of GERD and is currently being seen by GI for. Her sports development officer Dr. Cabello. - History of Current Complaint Chief Complaint: EDAsthma Stated Complaint: ASTHMA Time Seen by Provider: 08/18/17 20:36 Hx Last Menstrual Period: 3 wks ago Pain Intensity: 7 - Allergy/Home Medications Allergies/Adverse Reactions: Allergies Allergy/AdvReac Type Severity Reaction Status Date / Time No Known Allergies Allergy Verified 08/13/17 12:26 PMH/Surg Hx/FS Hx/Imm Hx Endocrine/Hematology History: Reports: Hx Anemia Denies: Hx Diabetes Cardiovascular History: Denies: Hx Hypertension, Hx Pacemaker/ICD Respiratory History: Reports: Hx Asthma History: Reports: Other Problems/Disorders - Heavy periods Musculoskeletal History: Reports: Hx Orthopedic Injury - Dislocation of R kneecap Sensory History: Reports: Hx Contacts or Glasses Denies: Hx Hearing Aid, Other Sensory Impairments Opthamlomology History: Reports: Hx Contacts or Glasses Denies: Other Sensory Impairments Neurological History: Reports: Hx Headaches Psychiatric History: Reports: Hx Anxiety Denies: Hx Panic Disorder - Surgical History Surgery Procedure, Year, and Place: no surg hx Infectious Disease History: No Infectious Disease History: Denies: Traveled Outside the [place] in Last 30 Days - Family History Known Family History: Positive: Diabetes, Respiratory Disease - Hx Asthma- sister and cousins, Hx COPD-father, chronic bronchitis-Aunt, Blood Disorder - Sister - anemia, receives blood transfusions, Other - Mother - multiple myeloma - Social History Alcohol Use: Occasionally Hx Substance Use: No Substance Use Type: Reports: None Hx Tobacco Use: No Smoking Status (MU): Never Smoked Tobacco Have You Smoked in the Last Year: No Review of Systems Negative: Fever Negative: Chest Pain Positive: Shortness Of Breath, Cough All Other Systems Reviewed And Are Negative: Yes Physical Exam Triage Information Reviewed: Yes Vital Signs On Initial Exam: Initial Vitals Temp Pulse Resp BP Pulse Ox 98.3 F 97 15 138/90 100 08/18/17 20:37 08/18/17 20:37 08/18/17 20:37 08/18/17 20:37 08/18/17 20:37 Vital Signs Reviewed: Yes Appearance: Positive: Well-Appearing Skin: Positive: Warm, Dry Head/Face: Positive: Normal Head/Face Inspection Eyes: Positive: Normal, EOMI, BLAIRE, Conjunctiva Clear ENT: Positive: Normal ENT inspection, Pharynx normal, TMs normal Neck: Positive: Supple, Nontender, No Lymphadenopathy Respiratory/Lung Sounds: Positive: Clear to Auscultation, Breath Sounds Present Cardiovascular: Positive: Normal, RRR Abdomen Description: Positive: Nontender, Soft Bowel Sounds: Positive: Present Musculoskeletal: Positive: Normal Neurological: Positive: Normal Psychiatric: Positive: Normal Diagnostics - Vital Signs Vital Signs Temp Pulse Resp BP Pulse Ox 08/18/17 20:37 98.3 F 97 15 138/90 100 - Laboratory Lab Statement: Any lab studies that have been ordered have been reviewed, and results considered in the medical decision making process. - Radiology chest Xray Interpretation: No Acute Changes Radiology Interpretation Completed By: Radiologist Re-Evaluation - Re-Evaluation First Eval Re-Evaluation Time: 22:09 Change: Worse Comment: feeling SOB again, will order neb Second Eval Re-Evaluation Time: 23:29 Change: Improved Comment: no SOB for an hour will send home Asthma Course/Dx - Course Course Of Treatment: 22-year-old female presents with asthma attack today. She states she is recently diagnosed with asthma and placed on inhaler and inhaled steroid. She states that cold is one of her triggers. She states she is walking back from the movies and started to have an asthma attack. She states that she started to have a coughing fit which is what has when has asthma attack. She states she was on very short of breath. She states she took her inhaler with no relief so she called EMS. She took neb in the rig and is feeling better. She states the last time she was here she had multiple treatments and had to return. She denies any fevers. She denies any recent illness. She denies any chest pain. She denies any bowel pain. She has history of GERD and is currently being seen by GI for. Her sports development officer Dr. Cabello. On exam lungs clear to auscultation. Chest x-ray normal. After an hour and a half patient states that is feeling short of breath again. Gave nebulizer treatment and observed for another hour patient's symptoms did not return. Will order neb machine for at home. Patient understands and agrees with plan. - Diagnoses Differential Diagnosis/HQI/PQRI: Positive: Acute Asthma, Bronchitis, Pneumonia Provider Diagnoses: Asthma exacerbation Discharge - Discharge Plan Condition: Good Disposition: HOME Prescriptions: Albuterol 2.5MG/3ML (0.083%)* [Ventolin 2.5 MG/3 ML NEB.MAGALY*] 2.5 mg INH Q6H # 20 neb.magaly predniSONE TAB* [Deltasone TAB*] 50 mg PO DAILY #4 tab Patient Education Materials: Asthma (ED) Referrals: Lester Gregory MD [Primary Care Provider] - Additional Instructions: Use inhaler up to two puffs every 4 hours for cough and wheezing Take steroid once a day for 4 more days starting tomorrow Take Tylenol or ibuprofen for pain every 6 hours Return to ED if develop severe shortness of breath, worsening chest pain, or any new or worsening symptoms
--- NOTE | 2017-08-18 21:22 | RAD ---
HISTORY: Cough COMPARISONS: March 19, 2017 VIEWS: 4: Frontal dual-energy and lateral views of the chest. FINDINGS: CARDIOMEDIASTINAL SILHOUETTE: The cardiomediastinal silhouette is normal. DAVID: The david are normal. PLEURA: The costophrenic angles are sharp. No pleural abnormalities are noted. LUNG PARENCHYMA: The lungs are clear. ABDOMEN: The upper abdomen is clear. There is no subphrenic gas. BONES AND SOFT TISSUES: No bone or soft tissue abnormalities are noted. OTHER: None. IMPRESSION: NO ACTIVE CARDIOPULMONARY DISEASE.
[2017-08-18] MEDS ORDERED: Albuterol/Ipratropium NEB.SOL* Albuterol 2.5 MG/Ipratropium 0.5 MG 3 ML INH ONE (22:13)
[2017-08-18 23:59] VITALS: BP 121/85
== END 2017-08-18 23:59 | disposition home or self-care (01) ==
LOC: ED 20:32
DX: J45.901 Unspecified asthma with (acute) exacerbation (principal)
CPT/HCPCS: 71046; 94640; 99283; A9270-GY; J7512

== ENCOUNTER 2017-09-05 19:01 | Emergency (ER) | payer OTHER ==
[2017-09-05] MEDS ORDERED: predniSONE TAB* 20 MG PO ONE (20:48)
[2017-09-05] MEDS ORDERED: Albuterol/Ipratropium NEB.SOL* Albuterol 2.5 MG/Ipratropium 0.5 MG 3 ML INH ONE (20:48)
--- NOTE | 2017-09-05 20:52 | UC ---
Asthma HPI - HPI Summary HPI Summary: Patient reports being exposed to an odor today that caused her to experience bronchospasm. Patient states she has used her MDI and her neb 2 without relief. . Patient reports having episodes like this in the past and has required short courses of prednisone to resolve - History of Current Complaint Chief Complaint: UCAsthma Stated Complaint: COUGH,ASTHMA ATTACK Time Seen by Provider: 09/05/17 19:59 Hx Obtained From: Patient Hx Last Menstrual Period: 07/31/17 ?: No Onset/Duration: Sudden Onset, Lasting Hours, Still Present Timing: Constant Initial Severity: Moderate Current Severity: Moderate Pain Intensity: 4 Location/Character: Cough (Nonproductive) Aggravating Factor(s): Nothing Alleviating Factor(s): Nothing Associated Signs and Symptoms: Positive: Negative - Allergy/Home Medications Allergies/Adverse Reactions: Allergies Allergy/AdvReac Type Severity Reaction Status Date / Time No Known Allergies Allergy Verified 09/05/17 19:15 PMH/Surg Hx/FS Hx/Imm Hx Previously Healthy: No - patient is currently being worked up for an auto immune disorder - Surgical History Surgical History: None Surgery Procedure, Year, and Place: no surg hx - Family History Known Family History: Positive: Diabetes, Respiratory Disease - Hx Asthma- sister and cousins, Hx COPD-father, chronic bronchitis-Aunt, Blood Disorder - Sister - anemia, receives blood transfusions, Other - Mother - multiple myeloma - Social History Occupation: Student Lives: Dormitory/Roommates Alcohol Use: Occasionally Substance Use Type: None Smoking Status (MU): Never Smoked Tobacco Have You Smoked in the Last Year: No Review of Systems Constitutional: Negative Skin: Negative Eyes: Negative ENT: Negative Respiratory: Cough Cardiovascular: Negative Gastrointestinal: Negative Genitourinary: Negative Motor: Negative Neurovascular: Negative Musculoskeletal: Negative Neurological: Negative Psychological: Negative Is Patient Immunocompromised?: No All Other Systems Reviewed And Are Negative: Yes Physical Exam Triage Information Reviewed: Yes Appearance: Well-Appearing, No Pain Distress, Well-Nourished Vital Signs: Initial Vital Signs Temp 99.3 F 09/05/17 19:10 Pulse 81 09/05/17 19:10 Resp 19 09/05/17 19:10 BP 127/76 09/05/17 19:10 Pulse Ox 100 09/05/17 19:10 Vital Signs Reviewed: Yes Eye Exam: Normal Eyes: Positive: Conjunctiva Clear ENT Exam: Normal ENT: Positive: Normal ENT inspection, Hearing grossly normal, Pharynx normal, TMs normal, Uvula midline. Negative: Nasal congestion, Nasal drainage, Tonsillar swelling, Tonsillar exudate, Trismus, Muffled voice, Hoarse voice, Dental tenderness, Sinus tenderness Dental Exam: Normal Neck exam: Normal Neck: Positive: Supple, Nontender, No Lymphadenopathy Respiratory Exam: Normal Respiratory: Positive: Chest non-tender, No respiratory distress, No accessory muscle use, Other: - Tight sounding cough Cardiovascular Exam: Normal Cardiovascular: Positive: RRR, No Murmur, Pulses Normal, Brisk Capillary Refill Abdominal Exam: Normal Abdomen Description: Positive: Nontender, No Organomegaly, Soft. Negative: CVA Tenderness (R), CVA Tenderness (L) Bowel Sounds: Positive: Present Musculoskeletal Exam: Normal Musculoskeletal: Positive: Strength Intact, ROM Intact Neurological Exam: Normal Neurological: Positive: Alert, Muscle Tone Normal Psychological Exam: Normal Skin Exam: Normal Re-Evaluation - Re-Evaluation Second Eval Change: Improved - Patient tolerated DuoNeb well and got good relief Asthma Course/Dx - Course Course Of Treatment: Discharge to home. follow with current medical care providers. short course of prednisone, may continue to use albuterol nap her inhaler when necessary - Differential Dx/Diagnosis Provider Diagnoses: Acute episode of bronchospasm Discharge - Sign-Out/Discharge Documenting (check all that apply): Discharge - Discharge Plan Condition: Stable Disposition: HOME Prescriptions: predniSONE TAB* [Deltasone TAB*] 20 mg PO DAILY #9 tab Patient Education Materials: Bronchospasm (ED) Referrals: Lester Gregory MD [Primary Care Provider] - 1 Week - Billing Disposition and Condition Condition: STABLE Disposition: HOME
[2017-09-05 21:31] VITALS: BP 123/84
== END 2017-09-05 21:33 | disposition home or self-care (01) ==
LOC: UCEAST 19:01
DX: J45.901 Unspecified asthma with (acute) exacerbation (principal)
CPT/HCPCS: 99212; A9270-GY; G0463; J7512

== ENCOUNTER 2017-11-06 12:33 | Emergency (ER) | payer OTHER ==
[2017-11-06 12:47] VITALS: BP 131/88
[2017-11-06] MEDS ORDERED: Ketorolac INJ* 30 MG/ML 1 ML VIAL IM ONE (13:00)
--- NOTE | 2017-11-06 13:01 | ED ---
GI/ HPI - HPI Summary HPI Summary: 22 F presents with menstrual cramps for the past couple days. She states she has history of bad menstrual pain. She is on control. She denies any excessive bleeding. She denies any dizziness. She admits to nausea but denies any vomiting. She took some meloxicam and without relief. She has been placing heat on the area. Periods have always caused her pain but never this intense. She denies any chance of today. She denies any UTI symptoms. She denies any previous surgeries. - History of Current Complaint Chief Complaint: UCAbdominalPain Time Seen by Provider: 11/06/17 12:56 Stated Complaint: ABD PAIN Hx Last Menstrual Period: on control Pain Intensity: 9 - Allergy/Home Medications Allergies/Adverse Reactions: Allergies Allergy/AdvReac Type Severity Reaction Status Date / Time No Known Allergies Allergy Verified 10/03/17 10:14 PMH/Surg Hx/FS Hx/Imm Hx Endocrine/Hematology History: Reports: Hx Anemia Denies: Hx Diabetes Cardiovascular History: Denies: Hx Hypertension, Hx Pacemaker/ICD Respiratory History: Reports: Hx Asthma History: Reports: Other Problems/Disorders - Heavy periods Denies: Hx Renal Disease Musculoskeletal History: Reports: Hx Orthopedic Injury - Dislocation of R kneecap, Other Musculoskeletal History - JOINT HYPERMOBILITY Sensory History: Reports: Hx Contacts or Glasses Denies: Hx Hearing Aid, Other Sensory Impairments Opthamlomology History: Reports: Hx Contacts or Glasses Denies: Other Sensory Impairments Neurological History: Reports: Hx Headaches Psychiatric History: Reports: Hx Anxiety, Hx Panic Disorder - ATTACKS-NOT DUE TO CLAUSTROPHOBIA - Surgical History Surgery Procedure, Year, and Place: no surg hx Infectious Disease History: No Infectious Disease History: Denies: Traveled Outside the [place] in Last 30 Days - Family History Known Family History: Positive: Diabetes, Respiratory Disease - Hx Asthma- sister and cousins, Hx COPD-father, chronic bronchitis-Aunt, Blood Disorder - Sister - anemia, receives blood transfusions, Other - Mother - multiple myeloma - Social History Alcohol Use: Occasionally Hx Substance Use: No Substance Use Type: Reports: None Hx Tobacco Use: No Smoking Status (MU): Never Smoked Tobacco Have You Smoked in the Last Year: No Review of Systems Negative: Fever Negative: Chest Pain Negative: Shortness Of Breath Positive: Abdominal Pain. Negative: Vomiting, Diarrhea, Nausea All Other Systems Reviewed And Are Negative: Yes Physical Exam Triage Information Reviewed: Yes Vital Signs On Initial Exam: Initial Vitals Temp Pulse Resp BP Pulse Ox 97.8 F 92 16 131/88 99 11/06/17 12:41 11/06/17 12:41 11/06/17 12:41 11/06/17 12:41 11/06/17 12:41 Vital Signs Reviewed: Yes Appearance: Positive: Well-Appearing Skin: Positive: Warm, Dry Head/Face: Positive: Normal Head/Face Inspection Eyes: Positive: Normal, Conjunctiva Clear ENT: Positive: Pharynx normal Respiratory/Lung Sounds: Positive: Clear to Auscultation, Breath Sounds Present Cardiovascular: Positive: Normal, RRR Abdomen Description: Positive: Soft, Other: - mild suprapubic tenderness Bowel Sounds: Positive: Present Musculoskeletal: Positive: Normal Neurological: Positive: Normal Psychiatric: Positive: Normal Diagnostics - Vital Signs Vital Signs Temp Pulse Resp BP Pulse Ox 11/06/17 12:41 97.8 F 92 16 131/88 99 - Laboratory Lab Statement: Any lab studies that have been ordered have been reviewed, and results considered in the medical decision making process. Re-Evaluation - Re-Evaluation First Eval Re-Evaluation Time: 13:37 Change: Improved Comment: feeling better after toradol GIGU Course/Dx - Course Course Of Treatment: 22 F presents with menstrual cramps for the past couple days. She states she has history of bad menstrual pain. She is on control. She denies any excessive bleeding. She denies any dizziness. She admits to nausea but denies any vomiting. She took some meloxicam and without relief. She has been placing heat on the area. Periods have always caused her pain but never this intense. She denies any chance of today. She denies any UTI symptoms. She denies any previous surgeries. On exam has tenderness suprapubic. Declined pelvic. We'll try Toradol.will have continue tyenlol or ibuprofen for pain. will have follow up with primary as blood pressure is elevated at this time in pre-htn range. patient understand and agrees with plan. - Diagnoses Differential Diagnoses - Female: Endometriosis, Urinary Tract Infection, Other - menstrual cramps Provider Diagnoses: Menstrual cramps Discharge - Sign-Out/Discharge Documenting (check all that apply): Discharge/Admit/Transfer - Discharge Plan Condition: Good Disposition: HOME Patient Education Materials: Dysmenorrhea (ED) Referrals: Lester Gregory MD [Primary Care Provider] - Additional Instructions: Follow up with benzol still operator Continue heat on area Take tyenlol or ibuprofen every 6 hours Return to ED if develop any new or worsening symptoms - Billing Disposition and Condition Condition: GOOD Disposition: HOME
== END 2017-11-06 13:45 | disposition home or self-care (01) ==
LOC: UCEAST 12:33
DX: N94.4 Primary dysmenorrhea (principal)
CPT/HCPCS: 96372; 99211; G0463; J1885

== ENCOUNTER 2018-01-12 18:30 | Emergency (ER) | payer OTHER ==
--- OUTSIDE RECORDS SUMMARY | 2018-01-12 18:36 | XMS REPORT ---
:1995 External Reference #:[id number] Author Organization [email or web address] Address [address] [place] [address] [place] [address] Phone [phone] Care Team Providers Name Role Phone Lester Gregory MD Primary Care Physician Unavailable Payers Type Date Identification Numbers Payment Provider Subscriber Commercial Effective: Policy Number: [id number] [employer] Christen Dickerson 2017 Medicaid PayID: [id number] [address] [place] [id number] Problems Date Description Provider Status Onset: 04/17/2017 [...] Form Strength Qnty SIG Indications Ordering Provider B12 Fast 12/17/ Active Tablets 5000mcg 90tab sublingual Emil Dissolve 2018 Dispers s daily Thierno Ferreira Wrist Splint 09/12/ Active Misc 2unit use daily to Emil 2017 s help with Hanna, pain and M.D. restriction in the right and left hand Elbow Support 09/12/ Active Misc 1unit apply daily Emil W/Encircling 2017 s to help Hanna, Support elbow M.D. Strap/Neoprene/ tendonitis Medium as needed, left Cane/Adjustable 09/12/ Active Misc 10/16" 1unit Use daily to Emil /Aluminum/Round 2017 s help with Hanna, Handle 10/16" ambulation M.D. with a 4 point prong Walker Auto 09/12/ Active Misc -06/18" 1unit use as Emil Gliedyta/2017 s needed for Hanna, Adjustment support from M.DEvelio Holes" arthritis and seat cushion Breo Ellipta 08/06/ Active Aerosol 200-25mcg 60uni take 1 Latrice S. 2017Inh ts inhaled Foster, daily N.P. Meloxicam 08/01/ Active Tablets 7.5mg 30tab take one tab M35.7 Emil 2017 s twice daily Hanna, as needed M.D. for pain, avoid other nsaids Aspercreme 07/09/ Active Cream 4% 6unit apply twice M54.6 Emil W/Lidocaine 2017 s daily to the Hanna, painful M.D. joints as needed Catalina Fe 06/30 / Active Tablets 1-20mg-mc qd Unknown 0000 g Ventolin HFA / Active Aerosol 108(90Bas Inhale 2 Unknown 0000 e) Puffs By mcg/Act Mouth Every 6 Hours as Needed For Shortness Of Breat Gabapentin / Active Capsules 300mg 2 caps tid Unknown 0000 Albuterol / Active Nebulizer (2.5mg/3M 1 vial via Unknown Sulfate 0000 L) 0.083% nebulizer 4 times daily as needed Escitalopram / Active Tablets 10mg Take 1 Unknown Oxalate 0000 Tablet By Mouth Every Day Lidoderm 06/27/ Hx Patches 5% 30uni 1 apply to M54.6 Emil 2018 - ts affected Hanna, 07/09/ area 12 M.D. 2018 hours on, 12 hours off Vitamin D 02/07/ Hx Capsules 27868Prla 8caps take 1 E55.9 Zsofia (Ergocalciferol 2017 - capsule a Franky, ) 06/17/ week for 8 LABORATORY HELPER 2016 weeks Iron Slow 02/07/ Hx Tablets ER 143(45Fe) 30tab 1 tab po in D50.9 Zsofia Release 2017 - mg s the morning. Franky, 2017 Vitamin D3 01/10/ Hx Capsules 5000Unit 90cap 1 by mouth E55.9 Zsofia Maximum 2017 - s every day Franky, Strength 2016 Ferrous 01/10/ Hx Tablets 324(37.5F 90tab 1 by mouth D50.9 Zsofia Gluconate 2017 - e) mg s every day Franky, 2016 Norethindrone 01/10/ Hx Tablets 1-20mg-mc 84tab take as N92.0 Zsofia Acetate/Ethinyl 2017 - g s instructed Franky Estradiol/Megan P us Fumarate 2017 N92.0 Ibuprofen - Hx Capsules 200mg as needed Unknown 06/27/2017 Ranitidine HCL - Hx 150mg bid Unknown 09/12/2017 Cymbalta - Hx 30mg has not started Unknown 09/12/2017 taking Vital Signs Date Vital Result Comment 12/17/2017 Height 64 inches 5'4" Weight 149.00 lb Heart Rate 89 /min BP Systolic Sitting 115 mmHg BP Diastolic Sitting 75 mmHg Respiratory Rate 14 /min Pain Level 7 BMI (Body Mass Index) 25.6 kg/m2 12/03/2017 Height 64 inches 5'4" Weight 134.00 lb Heart Rate 88 /min BP Systolic Sitting 116 mmHg BP Diastolic Sitting 76 mmHg Respiratory Rate 14 /min O2 % BldC Oximetry 98 % BMI (Body Mass Index) 23.0 kg/m2 09/17/2017 Height 64 inches 5'4" Weight 139.38 lb Heart Rate 96 /min BP Systolic Sitting 120 mmHg Lue reg cuff BP Diastolic Sitting 82 mmHg Lue reg cuff Respiratory Rate 20 /min O2 % BldC Oximetry 98 % On Ra BMI (Body Mass Index) 23.9 kg/m2 09/12/2017 Height 64 inches 5'4" Weight 137.12 lb Heart Rate 84 /min BP Systolic Sitting 122 mmHg BP Diastolic Sitting 84 mmHg Respiratory Rate 14 /min Pain Level 6 BMI (Body Mass Index) 23.5 kg/m2 08/06/2017 Height 64 inches 5'4" Weight 135.25 [...] 2 Thyroperoxidase AB 0.88 IU/mL <9 3 Hla B27 06/28/2017 Hla B27 Negative 4 Hla B27 Interp See Comment 5 Connective Tissue Panel 06/28/2017 Anti-Nuclear Antibody 0.7 U 6 Cyclic Citrullinated Peptide <15.6 U 7 Interpretation See Comment 8 Neutrophil Cytoplasmic AB 06/28/2017 C-Anca Negative Negative P-Anca Negative Negative 9 Laboratory test finding 06/28/2017 Angiotensin Converting Enzyme 12 U/L 8 - 53 10 Aso (Antistreptolysin O) Titer Negative IU/mL <200 Iu/mL 11 CBC Auto Diff 06/28/2017 White Blood Count [...] 250-450 % Iron Saturation 26 % 15-55 Celiac Hla 06/28/2017 Hla-Dqa1 SEE BELOW 12 Hla-DQB1 SEE BELOW 13 Celiac Gene Pairs Present? Yes Celiac Gene Interpretation See Comment 14 Celiac Panel 06/28/2017 Tissue Transglutaminase IgA Ab <1.2 U/mL 15 Immunoglobulin A 141 mg/dL 61 - 356 Celiac Interpretation See Comment 16 Laboratory test finding 06/28/2017 Erythrocyte Sed Rate 14 mm/Hr 0-14 17 C Reactive Protein < 1.00 mg/L < 5.00 18 Sickle Cell Screen Negative Negative 19 CK Isoenzymes 06/28/2017 Creatine Kinase 151 U/L 38 - 176 CK Isoenzyme Elec, Specimen See Comment 20 Creatine Kinase mm See Comment % 100 21 Creatine Kinase MB 0 % 0 Creatine Kinase BB 0 % 0 22 Laboratory test finding 12/27/2016 Vitamin D Total 25(Oh) 10.4 ng/mL Low 30-50 23 Iron & Iron Binding 12/27/2016 Iron 22 g/dL Low 50-212 23 Capacity Unsaturated Iron Binding 453 g/dL 23 Total [...] % 0 23 1 Test Performed by: [place] [id number] 2 Please check labs this week 3 Please check labs this week 4 REFERENCE VALUE Not Applicable 5 RESULT: HLA-B27 antigen was not detected. ADDITIONAL INFORMATION Method: Flow Cytometry Performing Laboratory CLIA# [id number] Test Performed by: [place] [id number] 6 REFERENCE VALUE <=1.0 (Negative) 7 REFERENCE VALUE <20.0 (Negative) 8 Tests for antibodies to dsDNA and AMIRA antigens are not performed automatically unless the RONDA result is > or= 3.0 U. Studies performed at [facility] indicate that positive RONDA results <3.0 U are rarely accompanied by positive second order tests. Test Performed by: [facility] [place] [place] [address] 9 Negative for cANCA and pANCA patterns by immunofluorescence. ADDITIONAL INFORMATION This test was developed and its performance characteristics determined by [facility] in a manner consistent with CLIA requirements. This test has not been cleared or approved by the U.S. Food and Drug Administration. Test Performed by: [facility] [place] [place] [address] 10 Test Performed by: [facility] [place] [place] [address] 11 Normal values may vary with age, season and geographic area. Titers above upper limits may be indicative of infection, however only a two dilution rise in titer is required to be considered significant. ASO titer will usually rise above upper limits within one week of exposure, increase to peak levels at 3-5 weeks and return to baseline level at 6-12 twelve months. 12 RESULT: 01,03 REFERENCE VALUE Not Applicable 13 RESULT: 03:02,05:03 DQ Serologic Equivalent: 8,5 REFERENCE VALUE Not Applicable 14 These genes are permissive for celiac disease. The absence of HLA celiac permissive genes would make the presence of celiac disease unlikely. However, these genes can also be present in the normal population. ADDITIONAL INFORMATION Method: Molecular typing of HLA antigens performed using reverse SSOP and/or SSP methods, reported as serological equivalents and low to medium resolution molecular values. Performing Laboratory CLIA# [id number] Test Performed by: [place] [address] 15 REFERENCE VALUE <4.0 (Negative) Test Performed by: [place] [address] 16 Negative serology. Celiac disease unlikely. However, approximately 10% of patients with celiac disease are seronegative. Also, patients who are already adhering to a gluten-free diet may be seronegative. If celiac disease is highly clinically suspected, consider HLA-DQ typing. Test Performed by: [place] [address] 17 Please check labs this week 18 Acute inflammation: >10.00 19 Please check labs this week 20 RESULT: If CK result is <100, isoenzyme will not be performed. Test Performed by: [address] [address] 21 MM=48% Macro Type 1=48% Macro Type 2=4% 22 Test Performed by: [address] [address] 23 has f/u in 3 days 24 Normal Range 180 to 914 Indeterminate Range 145 to 180 Deficient Range <145 Procedures Date CPT Code Description Status 08/22/2017 26783 Polysomnography Sleep Staging 4+ Parameters Completed 08/01/2017 94012 Bronchospasm Provocation Evalu Completed 07/30/2017 31087 Diffusing Capacity Completed 07/30/2017 96854 Plethysmography Determination Lung Volumes & Per Airway Completed Resist 07/30/2017 48838 Pulmonary Function><Bronchodil Completed 07/25/2017 73516 Sleep Study Unattended,HRT Rate,Oxygen Sat,Resp Completed Effort/Airflow Encounters Type Date Location Provider CPT E/M Dx Office Visit 12/03/2017 [facility] [address] J45.30 1:45p [facility] Office Visit 09/17/2017 [facility]ology [facility] Sleep Latrice Masters, [address] J45.30 1:30p [facility] N.P. R05 Office Visit 09/12/2017 11:00a [facility] Of Emil Ferreira [address]1301 M35.7 [facility] Jenna.Rober R51 M54.6 D64.9 Office Visit 08/06/2017 11:00a [facility]ology [facility] Sleep Latrice Masters [address] J45.30 [facility] N.P. R05 Office Visit 08/01/2017 1:20p [facility] Emil Ferreira [address]95 M54.6 [facility] D64.9 R51 M35.7 Office Visit 07/13/2017 10:00a [facility] [address] R05 Services Of [facility] R06.83 Office Visit 06/29/2017 1:15p [place] [address] Q66.89 [facility] Office Visit 06/27/2017 2:00p Rheumatology Services Emil Ferreira M.D. 85022 M54.2 Of [facility] M54.6 D64.9 R20.8 M79.1 R21 Office Visit 05/18/2017 2:30p [place] [address] Q66.89 Of [facility] Office Visit 04/20/2017 1:45p [place] [address] Q66.89 Of [facility] Office Visit 04/17/2017 10:15a [place] [address] M22.01 Of [facility] Office Visit 03/29/2017 10:30a Orthopedic Services Srini Troy 63696 Q66.89 Of C.[facility].AEvelio Pa Office Visit 03/15/2017 1:30p [place] [address] M25.561 Of [facility] M22.01 M21.40 Office Visit 02/07/2017 11:40a [facility] Internal Medicine - Kirstie Wilkins, LABORATORY HELPER [address] E55.9 D50.9 N92.0 Office Visit 01/10/2017 9:40a [facility] Internal Medicine - Kaitlynnofimegan Wilkins, LABORATORY HELPER [address] N92.0 E55.9 Office Visit 12/27/2016 11:00a [facility] Internal Medicine Kirstie Wilkins, LABORATORY HELPER [address] R53.[address] N92.0 E55.9 R48.8 Plan of Care Future Appointment(s):03/20/2018 1:00 pm - Emil Ferreira M.D. at [facility]ology [facility]05/30/2018 1:30 pm - Mari Cabello MD at [facility]ology [facility] Sleep [facility]12/17/2017 - Emil Ferreira M.D.R53.83 Other ffekptcZ05.9 Anemia, hahmcypbqkgD78 LzzbcjhgZ35.7 Hypermobility syndromeFollow up:Follow up in 3 months or sooner if needed
[2018-01-12 18:47] VITALS: BP 127/72
[2018-01-12] MEDS ORDERED: Albuterol/Ipratropium NEB.SOL* Albuterol 2.5 MG/Ipratropium 0.5 MG 3 ML INH ONE (18:58)
--- NOTE | 2018-01-12 19:03 | UC ---
Respiratory Complaint HPI - HPI Summary HPI Summary: This is scribe Aman Nietoin documenting for attending Dr. Eddie Carson MD. A 22 y/o female presents to [facility] c/o SOB and chest pain. As per triage, " Chest pain and SOB x 3 days". According to the patient, she has been experiencing chest pain and SOB for the past 3 days. She describes the chest pain as sharp and asthma-like tightness that she has noticed in the past with prior asthma attacks. She noted that she seems like she just ran up a flight of stairs SOB. Pt denies any visual changes, vomiting, fever, abdominal pain, ear pain, however, does have headache and nausea. She noted that the chest pain could be due to her asthma acting up. 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 Medications include Gabapentin, B12, Breo Ellipta, Lexapro, albuterol nebulizer and Catalina control. Additionally, she has used prednisone for a short course usually without a taper, however, has not taken the medication for a long period of time. - History of Current Complaint Chief Complaint: UCRespiratory Stated Complaint: SHORTNESS OF BREATH Time Seen by Provider: 01/12/18 18:33 Hx Obtained From: Patient Hx Last Menstrual Period: on control Onset/Duration: Sudden Onset, Lasting Days, Still Present Severity Initially: Moderate Severity Currently: Moderate Pain Intensity: 4 Pain Scale Used: 0-10 Numeric Aggravating Factors: Nothing Alleviating Factors: Nothing Associated Signs And Symptoms: Positive: Dyspnea - SOB. Negative: Fever - Allergies/Home Medications Allergies/Adverse Reactions: Allergies Allergy/AdvReac Type Severity Reaction Status Date / Time No Known Allergies Allergy Verified 01/12/18 18:47 Home Medications: Home Medications Fluticasone/Vilanterol [Breo Ellipta 200-25 Mcg INH] 1 puff PO DAILY 01/12/18 [ History Confirmed 01/12/18] PMH/Surg Hx/FS Hx/Imm Hx - Additional Past Medical History Additional PMH: Hypermobility Syndrome Previously Healthy: Yes Other Endocrine History: NEGATIVE Other Cardiovascular History: NEGATIVE Respiratory History: Asthma Other Respiratory History: NEGATIVE Other GI/ History: NEGATIVE Other Neurological History: NEGATIVE Other Psychological History: NEGATIVE Other Cancer History: NEGATIVE - Surgical History Surgical History: None Surgery Procedure, Year, and Place: no surg hx - Family History Known Family History: Positive: Diabetes, Respiratory Disease - Hx Asthma- sister and cousins, Hx COPD-father, chronic bronchitis-Aunt, Blood Disorder - Sister - anemia, receives blood transfusions, Other - Mother - multiple myeloma - Social History Alcohol Use: Weekly Substance Use Type: None Smoking Status (MU): Never Smoked Tobacco Have You Smoked in the Last Year: No Review of Systems Constitutional: Negative, Fever - NEGATIVE Skin: Negative Eyes: Blurred Vision - NEGATIVE ENT: Ear Ache - NEGATIVE Respiratory: Shortness Of Breath - POSITIVE Cardiovascular: Chest Pain - POSITIVE Gastrointestinal: Abdominal Pain, Vomiting, Nausea Genitourinary: Negative Motor: Negative Neurovascular: Negative Musculoskeletal: Negative Neurological: Headache - POSITIVE Psychological: Negative Is Patient Immunocompromised?: No All Other Systems Reviewed And Are Negative: Yes Physical Exam - Summary Physical Exam Summary: Appearance: Well-Appearing, No Pain Distress, Well-Nourished Eyes: conjunctiva clear, no discharge ENT: Hearing grossly normal, no muffled/hoarse voice. Neck: Normal, Supple Respiratory/Lung Sounds: Lungs clear, Normal breath sounds, No respiratory distress, No accessory muscle use. No rales. Air inspiration is normal bilaterally, expiration is poor. No audible sounds heard upon expiration. Cardiovascular: RRR, No murmur Abdomen: Nontender, Soft, no guarding, not distended Bowel Sounds: Present Musculoskeletal: Normal Neurological: Alert, muscle tone normal Psychiatric:Normal, age appropriate behavior Skin: Normal, Warm, Dry, Normal color Triage Information Reviewed: Yes Vital Signs: Initial Vital Signs Temp 97.8 F 01/12/18 18:44 Pulse 83 01/12/18 18:44 Resp 20 01/12/18 18:44 BP 127/72 01/12/18 18:44 Pulse Ox 100 01/12/18 18:44 Vital Signs Reviewed: Yes Diagnostic Evaluation - Laboratory O2 Sat by Pulse Oximetry: 100 - EKG EKG Comments: Normal CO, Normal QRS, normal axis, no ST changes, no hypertrophy. Cardiac Rate: NL - 81 BPM Cardiac Rhythm: Sinus: Normal - Sinus Rhythm/Sinus Arrhythmia of 81 BPM, AFib: Normal EKG Comparison: No Significant Change - From March 2017 EKG unchanged Re-Evaluation - Re-Evaluation First Eval Re-Evaluation Time: 19:00 Comment: Nebulizer treatment. Second Eval Re-Evaluation Time: 19:40 Change: Improved Comment: IV Solu Medrol treatment with some improvements. Third Eval Re-Evaluation Time: 20:15 Change: Improved Comment: Patient is out of Prednisone and Albuterol inhaler, patient requests refil. Patient's lung exam significantly improved. Patient does not want another nebulizer treatment. Patient is comfortable going home. Respiratory Course/Dx - Course Course Of Treatment: During the visit today, we reviewed her symptoms which appears to be in asthma exacerbation. EKG was done shows sinus arrhythmia with a heart rate of 81, normal CO, QRS interval, no ST segment elevation, normal axis and no hypertrophy . This was compared to a prior EKG on 03/2017 without any significant change . Patient recieved DuoNeb nebulizer treatment 1 and IV Solu-Medrol . during reevaluation post-nebulizer treatment, patient's lung exam significantly improved. Patient does not want another nebulizer treatment. Patient is comfortable going home. Patient will be discharged with a diagnosis of asthma and broncospasm. Patient is to start taking medications as prescribed. Patient is to follow up with PCP in 2 days. Pt is agreeable with this plan. - Differential Dx/Diagnosis Provider Diagnoses: Asthma and Broncospasm. Discharge - Sign-Out/Discharge Documenting (check all that apply): Patient Departure - DISCHARGE - Discharge Plan Condition: Stable Disposition: HOME Prescriptions: Albuterol HFA INHALER* [Ventolin HFA Inhaler*] 1 puff INH Q4H PRN #1 mdi PRN Reason: Shortness Of Breath Azithromyxin ALFRED (NF) [Z-Alfred (Zithromax) 250 mg tabs #6] 2 tab PO .TODAY, THEN 1 DAILY #6 tab predniSONE [Prednisone 20 MG TAB] 60 mg PO DAILY 5 Days #15 tablet Patient Education Materials: Asthma (ED), Bronchospasm (ED) Referrals: Lester Gregory MD [Primary Care Provider] - 2 Days Additional Instructions: Please start taking the medication as prescribed to the pharmacy . Follow up with your primary care doctor in 2 days. Return to Urgent care / ER if symptoms get worse. - Billing Disposition and Condition Condition: STABLE Disposition: Home
[2018-01-12] MEDS ORDERED: methylPREDNISolone 125 MG* 2 ML VIAL IV ONE (19:24)
[2018-01-12] MEDS ORDERED: predniSONE TAB* 20 MG PO ONE (20:19)
== END 2018-01-12 20:30 | disposition home or self-care (01) ==
LOC: UCEAST 18:30
DX: J45.901 Unspecified asthma with (acute) exacerbation (principal); M35.7 Hypermobility syndrome; Z83.3 Family history of diabetes mellitus; Z82.5 Family history of asthma and other chronic lower respiratory diseases; Z83.2 Family history of diseases of the blood and blood-forming organs and certain disorders involving the immune mechanism
CPT/HCPCS: 93005; 96374; 99213; A9270-GY; G0463; J2930; J7512

== ENCOUNTER 2018-04-13 23:54 | Inpatient (IN) | payer OTHER ==
--- OUTSIDE RECORDS SUMMARY | 2018-04-14 00:20 | XMS REPORT ---
:1995 External Reference #:[id number] Author Organization [employer] Address [address] [place] [address] [place] [address] Phone [phone] Care Team Providers Name Role Phone Lester Gregory MD Primary Care Physician Unavailable Payers Type Date Identification Numbers Payment Provider Subscriber Commercial Effective: Policy Number: [id number] [employer] Christen Dickerson 2017 Medicaid PayID: [id number] [address] [place] [address] Problems Date Description Provider Status Onset: 04/17/2017 [...] Form Strength Qnty SIG Indications Ordering Provider Capsaicin 03/20/ Active Cream 0.025% 60gm apply daily 2017 to the upper Hanna, back region M.D. B12 Fast 12/17/ Active Tablets 5000mcg 90tab sublingual Emil Dissolve 2018 Dispers s daily Hanna, M.D. Wrist Splint 09/12/ Active Misc 2unit use daily to Emil 2017 s help with Hanna, pain and M.D. restriction in the right and left hand Elbow Support 09/12/ Active Misc 1unit apply daily Emil W/Encircling 2018 s to help Hanna, Support elbow M.D. Strap/Neoprene/ tendonitis Medium as needed, left Cane/Adjustable 09/12/ Active Misc 10/16" 1unit Use daily to Emil /Aluminum/Round 2017 s help with Hanna, Handle 10/16" ambulation M.D. with a 4 point prong Walker Auto 09/12/ Active Misc -06/18" 1unit use as Emil Glides/2017 s needed for Hanna, Adjustment support from M.Rober Holes/-06/18" arthritis and seat cushion Breo Ellipta 08/06/ Active Aerosol 200-25mcg 60uni take 1 Latrice S. 2017 /Inh ts inhaled Foster, daily N.P. Meloxicam 08/01/ Active Tablets 7.5mg 30tab take one tab M35.7 Emil 2017 s twice daily Hanna, as needed M.D. for pain, avoid other nsaids Aspercreme 07/09/ Active Cream 4% 6unit apply twice M54.6 Emil W/Lidocaine 2018 s daily to the Hanna, painful M.D. [...] Oxalate 0000 Tablet By Mouth Every Day Bupropion HCL / Active Tablets 75mg 1 by mouth Unknown 0000 every day Magnesium / Active Tablets 1 by mouth Unknown 0000 every day Sumatriptan / Active Tablets Unknown Succinate 0000 Lidoderm 06/27/ Hx Patches 5% 30uni 1 apply to M54.6 Emil 2018 - ts affected Hanna, 07/09/ area 12 M.D. 2018 hours on, 12 hours off Vitamin D 02/07/ Hx Capsules [id number] 8caps take 1 E55.9 Zsofia (Ergocalciferol 2017 - capsule a Franky, ) 06/17/ week for 8 INTERMEDIATE DESIGNER 2017 weeks Iron Slow 02/07/ Hx Tablets ER [...] taking Vital Signs Date Vital Result Comment 03/20/2018 Height 64 inches 5'4" Weight 161.00 lb Heart Rate 96 /min BP Systolic Sitting 119 mmHg BP Diastolic Sitting 83 mmHg Respiratory Rate 14 /min Pain Level 2 BMI (Body Mass Index) 27.6 kg/m2 12/17/2017 Height 64 inches 5'4" Weight 149.00 [...] % 0 23 1 Test Performed by: [facility] - [address] [address] 2 Please check labs this week 3 Please check labs this week 4 REFERENCE VALUE Not Applicable 5 RESULT: HLA-B27 antigen was not detected. ADDITIONAL INFORMATION Method: Flow Cytometry Performing Laboratory CLIA# [id number] Test Performed by: [facility] - [place] [id number] REFERENCE VALUE <=1.0 (Negative) 7 REFERENCE VALUE <20.0 (Negative) 8 Tests for antibodies to dsDNA and AMIRA antigens are not performed automatically unless the RONDA result is > or= 3.0 U. Studies performed at [facility] indicate that positive RONDA results <3.0 U are rarely accompanied by positive second order tests. Test Performed by: [facility] [place] [address] 9 Negative for cANCA and pANCA patterns by immunofluorescence. ADDITIONAL INFORMATION This test was developed and its performance characteristics determined by [facility] in a manner consistent with CLIA requirements. This test has not been cleared or approved by the U.S. Food and Drug Administration. Test Performed by: [facility] [place] [address] 10 Test Performed by: [facility] [place] [address] 11 Normal values may vary with age, [...] medium resolution molecular values. Performing Laboratory CLIA# [id number] Test Performed by: [place] [address] 15 REFERENCE VALUE <4.0 (Negative) Test Performed by: [place] [address] 16 Negative serology. Celiac disease unlikely. However, approximately 10% of patients with celiac disease are seronegative. Also, patients who are already adhering to a gluten-free diet may be seronegative. If celiac disease is highly clinically suspected, consider HLA-DQ typing. Test Performed by: [place] [address] 17 Please check labs this week 18 Acute inflammation: >10.00 19 Please check labs this week 20 RESULT: If CK result is <100, isoenzyme will not be performed. Test Performed by: [place] [address] 21 MM=48% Macro Type 1=48% Macro Type 2=4% 22 Test Performed by: [place] [id number] 23 has f/u in 3 days 24 Normal Range 180 to 914 Indeterminate Range 145 to 180 Deficient Range <145 Procedures Date CPT Code Description Status 08/22/2017 28852 Polysomnography Sleep Staging 4+ Parameters Completed 08/01/2017 79360 Bronchospasm Provocation Evalu Completed 07/30/2017 97117 Diffusing Capacity Completed 07/30/2017 23774 Plethysmography Determination Lung Volumes & Per Airway Completed Resist 07/30/2017 64098 Pulmonary Function><Bronchodil Completed 07/25/2017 91184 Sleep Study Unattended,HRT Rate,Oxygen Sat,Resp Completed Effort/Airflow Encounters Type Date Location Provider CPT E/M Dx Office Visit 12/17/2017 Rhe[facility]ology Services Emil Ferreira M.D. 11486 R53.83 1:20p Of Edith D64.9 R51 M35.7 Office Visit 12/03/2017 1:45p [facility] [address] J45.30 Services Of Manager Deli Office Visit 09/17/2017 1:30p [facility] Sleep Latrice Masters 04825 J45.30 Services Of Manager Deli N.P. R05 Office Visit 09/12/2017 11:00a [facility] Services Of Emil Ferreira 33526 M35.7 Edith Pa R51 M54.6 D64.9 Office Visit 08/06/2017 11:00a [facility] Sleep Latrice Masters 79303 J45.30 Services Of Edith N.P. R05 Office Visit 08/01/2017 1:20p [facility] Of Emil Ferreira 16365 M54.6 Edith Pa D64.9 R51 M35.7 Office Visit 07/13/2017 10:00a [facility] [address] R05 Services Of Edith R06.83 Office Visit 06/29/2017 1:15p [place] [address] Q66.89 C.M.A. Office Visit 06/27/2017 2:00p [facility] Services Emil Ferreira M.D. 09202 M54.2 Of Edith M54.6 D64.9 R20.8 M79.1 R21 Office Visit 05/18/2017 2:30p [place] [address] Q66.89 Of C.M.A. Office Visit 04/20/2017 1:45p [place] [address] Q66.89 Of C.M.A. Office Visit 04/17/2017 10:15a [place] [address] M22.01 Of C.M.A. Office Visit 03/29/2017 10:30a [facility]opedic Services Srini Troy 60614 Q66.89 Of C.M.Hiwot. Thierno Office Visit 03/15/2017 1:30p [place] [address] M25.561 Of C.M.AEvelio M22.01 M21.40 Office Visit 02/07/2017 11:40a [facility] Internal Medicine - Kaitlynnofia Franky, INTERMEDIATE DESIGNER [address] E55.9 D50.9 N92.0 Office Visit 01/10/2017 9:40a [facility] Internal Medicine - Zsofia Franky, INTERMEDIATE DESIGNER [address] N92.0 E55.9 Office Visit 12/27/2016 11:00a [facility] Internal Medicine Kaitlynnofia Franky, INTERMEDIATE DESIGNER [address] R53.[address] N92.0 E55.9 R48.8 Plan of Care Future Appointment(s):08/13/2018 11:15 am - Tuan Null M.D. at [facility]05/30/2018 1:30 pm - Mari Cabello MD at [facility]03/20/2018 - Emil Ferreira M.D.M35.7 Hypermobility hyipmtiuD98.83 Other paoamhuJ52.9 Anemia, jknxwyrzeeaF82.6 Pain in thoracic spineComments:Please call if back or skin pain worsens or does not improve
[2018-04-14 01:27] LABS: ABS Basophils 0.1 10^3/ul (0-0.2); ABS Eosinophils 0.2 10^3/ul (0-0.6); ABS Lymphocytes 1.6 10^3/ul (1.0-4.8); ABS Monocytes 0.6 10^3/ul (0-0.8); ABS Neutrophils 8.5 10^3/ul (1.5-7.7); ABS Nucleated RBC 0 10^3/ul; Eosinophil % 1.6 % (0-6); Hematocrit 41 % (35-47); Hemoglobin 13.7 g/dl (12.0-16.0); Mean Corpuscular HGB Conc 34 g/dl (31-36); Mean Corpuscular Hemoglobin 30 pg (27-31); Mean Corpuscular Volume 90 fL (80-97); Mean Platelet Volume 8.4 fL (7.4-10.4); Nucleated Red Blood Cells % 0; Platelet Count 161 10^3/ul (150-450); Red Blood Count 4.55 10^6/ul (4.00-5.40); Red Cell Distribution Width 12 % (10.5-15)
[2018-04-14] MEDS ORDERED: Nicotine Inhaler* 10 MG AMP INH PRN (01:35)
[2018-04-14 01:44] LABS: EGFR Non-African American 93.5 (>60)
--- NOTE | 2018-04-14 01:58 | ED ---
Altered Mental Status - HPI Summary HPI Summary: LEVEL 5 CAVEAT: Patient was non-verbal. This patient is a 23 year old F presenting to [facility] with a chief complaint of SI with a plan since tonight. Her fianc says that the patient typed this out on a phone. All other history was obtained by nodding yes or no. The patient has an ill feeling and light sensitivity (pre-existing). Patient denies flu- like symptoms. Per the fianc, the patient is intermittently non-verbal. Vashti s last verbal conversation with her was on 04/11/2018. Patient nodded yes to indicate that she has talked today. Vashti believes that the patient has been taking her medications. Patient has a PMHx of asthma, hypermobility syndrome, depression, anxiety, undiagnosed autism, and SI. No PMHx of bipolar disorder or schizophrenia. - History Of Current Complaint Chief Complaint: EDMentalHealth Stated Complaint: MHE/SUICIDAL Time Seen by Provider: 04/14/18 01:34 EDT Hx Obtained From: Patient, Family/[facility] - Fiwoo Hx Last Menstrual Period: on control Onset/Duration: Still Present Has Suicidal: Thoughts, With A Plan - Allergies/Home Medications Allergies/Adverse Reactions: Allergies Allergy/AdvReac Type Severity Reaction Status Date / Time No Known Allergies Allergy Verified 04/13/18 23:59 Home Medications: Home Medications Albuterol HFA INHALER* [Ventolin HFA Inhaler*] 1 puff INH Q4HR PRN MDD 4 [History Confirmed 04/14/18] Chelated Magnesium 27 mg PO BID 04/14/18 [History Confirmed 04/14/18] Clomipramine HCl 25 mg PO BID 04/14/18 [History Confirmed 04/14/18] buPROPion TAB* [Wellbutrin TAB*] 100 mg PO DAILY 04/14/18 [History Confirmed 09/26] PMH/Surg Hx/FS Hx/Imm Hx Endocrine/Hematology History: Reports: Hx Anemia Denies: Hx Diabetes Cardiovascular History: Denies: Hx Hypertension, Hx Pacemaker/ICD Respiratory History: Reports: Hx Asthma History: Reports: Other Problems/Disorders - Heavy periods Denies: Hx Renal Disease Musculoskeletal History: Reports: Hx Orthopedic Injury - Dislocation of R kneecap, Other Musculoskeletal History - JOINT HYPERMOBILITY Sensory History: Reports: Hx Contacts or Glasses Denies: Hx Hearing Aid, Other Sensory Impairments Opthamlomology History: Reports: Hx Contacts or Glasses Denies: Other Sensory Impairments Neurological History: Reports: Hx Headaches Psychiatric History: Reports: Hx Anxiety, Hx Panic Disorder - ATTACKS-NOT DUE TO CLAUSTROPHOBIA - Surgical History Surgery Procedure, Year, and Place: no surg hx Infectious Disease History: No Infectious Disease History: Denies: Traveled Outside the [place] in Last 30 Days - Family History Known Family History: Positive: Diabetes, Respiratory Disease - Hx Asthma- sister and cousins, Hx COPD-father, chronic bronchitis-Aunt, Blood Disorder - Sister - anemia, receives blood transfusions, Other - Mother - multiple myeloma - Social History Alcohol Use: None Hx Substance Use: No Substance Use Type: Reports: None Hx Tobacco Use: No Smoking Status (MU): Never Smoked Tobacco Have You Smoked in the Last Year: No Review of Systems Positive: Other - An ill feeling and light sensitivity. Denies flu-like symptoms. Positive: Other - Suicidal ideations with a plan All Other Systems Reviewed And Are Negative: No Physical Exam - Summary Physical Exam Summary: Level 5 Caveat: History limited due to non-verbal patient. GENERAL: Patient is a well-developed and nourished __(F)__ who is lying comfortable in the stretcher. Patient is not in any acute respiratory distress. Patient is non-verbal. History was mainly obtained from nodding yes/ no the fianc. HEAD AND FACE: Normocephalic EYES: PERRLA, EOMI x 2. EARS: Hearing grossly intact. MOUTH: Oropharynx within normal limits. NECK: Supple, trachea is midline, no adenopathy, no JVD, no carotid bruit. CHEST: Symmetric, no tenderness at palpation LUNGS: Clear to auscultation bilaterally. No wheezing or crackles. CVS: Regular rate and rhythm, S1 and S2 present, no murmurs or gallops appreciated. ABDOMEN: Soft, non-tender. Bowel sounds are normal. No abdominal abnormal pulsations. EXTREMITIES: Full ROM in all major joints, no edema, no cyanosis or clubbing. NEURO: Alert and oriented x 3. No acute neurological deficits. Patient is non- verbal. PSYCH: SI with a plan. SKIN: Dry and warm Triage Information Reviewed: Yes Vital Signs On Initial Exam: Initial Vitals Temp Pulse Resp BP Pulse Ox 99.8 F 111 18 143/84 99 04/13/18 23:57 04/13/18 23:57 04/13/18 23:57 04/13/18 23:57 04/13/18 23:57 Vital Signs Reviewed: Yes Diagnostics - Vital Signs Vital Signs Temp Pulse Resp BP Pulse Ox 04/13/18 23:57 99.8 F 111 18 143/84 99 - Laboratory Result Diagrams: 04/14/18 01:17 EST 04/14/18 01:17 EST Lab Statement: Any lab studies that have been ordered have been reviewed, and results considered in the medical decision making process. Altered Mental Statu Course/Dx - Course Course Of Treatment: This patient is a 23 year old F presenting to [facility] with a chief complaint of SI with a plan since tonight. Workup was remarkable for WBC = 11.0 H, Lymph = 15.0 L, and Absolute Neuts = 8.5 H. Patient was given a MHE evaluation. She will now be admitted with a dx of a major depressive episode. - Diagnoses Provider Diagnoses: Major depressive disorder, single episode, unspecified Discharge - Sign-Out/Discharge Documenting (check all that apply): Patient Departure - Admit All imaging exams completed and their final reports reviewed: No Studies - Discharge Plan Condition: Stable Disposition: ADMITTED TO [facility] - Billing Disposition and Condition Condition: STABLE Disposition: Admitted to [facility] - Attestation Statements Document Initiated by Scribe: Yes Documenting Scribe: Ashok Denis Provider For Whom Scribe is Documenting (Include Credential): Maggie Wilson MD Scribe Attestation: Ashok Armendariz scribed for Maggie Wilson MD on 04/18/18 at 1643. Scribe Documentation Reviewed: Yes Provider Attestation: The documentation as recorded by the Ashok huynh accurately reflects the service I personally performed and the decisions made by me, Maggie Wilson MD
[2018-04-14] MEDS ORDERED: Mouth Piece, Nicotine* 1 EACH CARTRIDGE INH ONE (02:00)
[2018-04-14 03:39] LABS: Urine Appearance Cloudy; Urine Blood 3+ (Negative); Urine Color Yellow; Urine Ketones Negative (Negative); Urine Protein 1+(30 mg/dL) (Negative); Urine Red Blood Cell 3+(>10/hpf) (Absent); Urine Specific Gravity 1.025 (1.010-1.030); Urine Urobilinogen Negative (Negative); Urine White Blood Cell Trace(0-5/hpf) (Absent)
[2018-04-14] MEDS ORDERED: Acetaminophen TAB* 325 MG PO PRN (06:33)
[2018-04-14] MEDS ORDERED: Al Hydrox/Mg Hydrox/Simet LIQ* 30 ML UDC PO PRN (06:33)
[2018-04-14] MEDS: Vitamin THERAPEUTIC TAB PO SCH (11:15)
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
[2018-04-15] MEDS: Vitamin THERAPEUTIC TAB PO SCH (09:00)
[2018-04-15] MEDS ORDERED: Albuterol HFA INHALER* 8 gm MDI INH PRN (10:19)
[2018-04-15] MEDS ORDERED: Norethindrone/Eth Est 1.5/30NF 1 TAB TAB PO SCH (10:30)
[2018-04-15] MEDS ORDERED: Albuterol 2.5 MG/3 ML NEB.SOL* (0.083%) INH PRN (11:00)
--- NOTE | 2018-04-15 14:15 | PN ---
Subjective - Subjective Date of Service: 04/15/18 Service Type: 01829 Hosp care 25 min moderate complexity Subjective: Patient is seclusive, declining to leave room for groups or meals. She begrudgingly joined life underwriter in comfort room for interview. She communicated via written answers and did so cooperatively with flat and tearful affect. She identifies that she is fearful of meeting a new coworker, among other people, due to not feeling likable. She identifies "annoying habits" of rocking back and forth, shaking legs, tapping, clicking pens and picking her face. She endorses obsessive thinking, denies compulsions. She is able to identify previous medications trials, including various SSRIs and SNRIs, which were ineffective; methylphenidate caused worsening anxiety. She signed ROIs for [facility], her fiance Kurt and her mother. Patient reports her relationship with Kurt is going well and denies this is a stressor. Objective - Appearance Appearance: Well Developed/Nourished Dysmorphic Features: Yes Hygiene: Mal-odorous Grooming: Disheveled - Behavior Psychomotor Activities: Abnormal-Decreased - psychomotor retardation Exhibits Abnormal Movement: Yes - Attitude and Relatedness Attitude and Relatedness: Withdrawn Eye Contact: Poor - selectively mute - Mood Patient's Decription of Mood: "Sad" - Affect Observed Affect: Depressed Affect Consistent with: Dysphoria - Thought Process Patient's Thought Process: Impoverished Thought Content: Yes Passive Wish, No Suicidal Planning, No Homicidal Ideation, No Paranoid Ideation - Sensorium Experiencing Hallucinations: No, Sensorium is Clear Type of Hallucinations: Visual: No, Auditory: No, Command: No - Level of Consciousness Level of Consciousness: Alert Orientation: Yes Intact, Yes Orientated to Time, Yes Orientated to Place, Yes Orientated to Person - Impulse Control Impulse Control: Tenuous - Insight and Judgement Insight and Judgement: Poor - Group Participation Particating in Group Activities: No - Medication Management Medication Management Adherence: Yes Assessment - Assessment Merits Inpatient Hospitalization: For Immediate Safety, For Stabilization Inpatient DSM-V Dx: F42.9 - OCD Clinical Impression: 23yo black female, domiciled, employed who presents to ED with selective mutisim , depressed mood with c/o suicidal ideation. She has previous diagnoses of OCD and is being cross titrated from escitalopram to clomipramine. She has had trials of multiple psychopharm agents. She merits hospitalization for immediate safety and stabilization. MHU: Problem List - Patient Problems (1) MDD (major depressive disorder), recurrent episode, severe Current Visit: Yes Status: Chronic Priority: High Code(s): F33.2 - MAJOR DEPRESSV DISORDER, RECURRENT SEVERE W/O PSYCH FEATURES SNOMED Code(s): 466944610802 Comment: titrate medications and encourage programming (2) OCD (obsessive compulsive disorder) Current Visit: Yes Status: Acute Priority: High Code(s): F42.9 - OBSESSIVE -COMPULSIVE DISORDER, UNSPECIFIED SNOMED Code(s): 430471737 Comment: titrate clomipramine and add prn hydroxyzine Plan - Plan Treatment Plan: Name: FAUSTINO ISRAEL Birthdate: 1995 [id number] continue acute intensive psychiatric treatment. medication changes: increase clomipramine, change buproprion to XL formulation, add hydroxyzine prn for anxiety discharge planning to include family and outpatient providers. Continued Medication Management: Different Medication Medications: Current Medications Acetaminophen (Tylenol Tab*) 650 mg PO Q4H PRN PRN Reason: PAIN or TEMP > 101 F Al Hydrox/Mg Hydrox/Simethicone (Maalox Plus*) 30 ml PO Q4H PRN PRN Reason: INDIGESTION Last Admin: 04/14/18 16:25 Dose: 30 ml Albuterol (Ventolin 2.5 Mg/3 Ml Neb.Sandra*) 2.5 mg INH Q6H PRN PRN Reason: COUGH Albuterol (Ventolin Hfa Inhaler*) 1 puff INH Q4HR PRN PRN Reason: SOB/WHEEZING Bupropion HCl (Wellbutrin Xl *) 150 mg PO DAILY [facility]; Protocol Clomipramine HCl (Clomipramine (Nf)) 50 mg PO BEDTIME [facility] Clomipramine HCl (Clomipramine (Nf)) 25 mg PO DAILY [facility]; Protocol Cyanocobalamin (Vitamin B12 Tab*) 1,000 mcg PO DAILY [facility] Ethinyl Estradiol/Norethindrone (Junel 1.5/30 (Nf)) 1 tab PO BEDTIME [facility] Fluticasone/Vilanterol (Breo Ellipta Mdi 200/25(Nf)) 1 puff INH DAILY [facility] Gabapentin (Neurontin Cap(*)) 600 mg PO TID [facility] Hydroxyzine HCl (Atarax Tab*) 50 mg PO Q4H PRN PRN Reason: ANXIETY Multivitamins (Theragran Tab*) 1 tab PO DAILY [facility] Last Admin: 04/15/18 09:00 Dose: Not Given Nicotine (Nicotine Inhaler*) 10 mg INH Q2H PRN PRN Reason: CRAVING - Discharge Plan Discharge Plan: Outpatient Follow Up Outpatient Program: [facility]
[2018-04-15] MEDS: Cyanocobalamin TAB* 500 MCG PO SCH (14:45)
[2018-04-15] MEDS: Magnesium Oxide TAB* 400 MG PO SCH (14:45)
[2018-04-15] MEDS: Gabapentin CAP(*) 300 MG PO SCH ×2 (14:46→23:02)
[2018-04-15] MEDS: PTO:Fluticasone/Vilanterol MDI(NF) 200/25 MDI INH SCH (14:58)
[2018-04-15] MEDS: CLOMIPRAMINE 25 MG PO SCH (20:47)
[2018-04-15] MEDS: Norethindrone/Eth Est 1.5/30NF 1 TAB TAB PO SCH (20:48)
[2018-04-16] MEDS: CMCS ClomiPRAMINE (NF) 25 MG CAP PO SCH (09:56)
[2018-04-16] MEDS: Vitamin THERAPEUTIC TAB PO SCH (09:56)
[2018-04-16] MEDS: Gabapentin CAP(*) 300 MG PO SCH ×3 (09:56→21:42)
[2018-04-16] MEDS: Magnesium Oxide TAB* 400 MG PO SCH (09:56)
[2018-04-16] MEDS: BuPROPion XL* 150 MG TAB.XL PO SCH (09:56)
[2018-04-16] MEDS: Cyanocobalamin TAB* 500 MCG PO SCH (09:56)
[2018-04-16] MEDS: PTO:Fluticasone/Vilanterol MDI(NF) 200/25 MDI INH SCH (09:59)
[2018-04-16] MEDS ORDERED: SUMAtriptan TAB* 100 MG PO ONE (11:06)
--- NOTE | 2018-04-16 17:03 | PN ---
Subjective - Subjective Date of Service: 04/16/18 Service Type: 77010 Hosp care 25 min moderate complexity Subjective: with prompting, patient participated moreso in unit programming today. she is knowledgeable of DBT and some associated skills training. she presents as dysphoric, tearful at times. she spoke with a staff member and attributed this to trusting her. patient wrote answers to speech writer's questions. she endorses continued depressed and anxious mood with poor sleep. she denies readiness for discharge. Objective - Appearance Appearance: Well Developed/Nourished Dysmorphic Features: Yes Hygiene: Normal Grooming: Well Kept - Behavior Psychomotor Activities: Normal Exhibits Abnormal Movement: No - Attitude and Relatedness Attitude and Relatedness: Withdrawn Eye Contact: Poor - Speech Quality: Unpressured - selectively mute - Mood Patient's Decription of Mood: "Sad" - Affect Observed Affect: Depressed Affect Consistent with: Dysphoria - Thought Process Patient's Thought Process: Impoverished Thought Content: Yes Passive Wish, Yes Suicidal Planning, No Homicidal Ideation, No Paranoid Ideation - Sensorium Experiencing Hallucinations: No, Sensorium is Clear Type of Hallucinations: Visual: No, Auditory: No, Command: No - Level of Consciousness Level of Consciousness: Alert Orientation: Yes Intact, Yes Orientated to Time, Yes Orientated to Place, Yes Orientated to Person - Impulse Control Impulse Control: Poor - Insight and Judgement Insight and Judgement: Fair - Group Participation Particating in Group Activities: Yes Group Participation Comments: partial - Medication Management Medication Management Adherence: Yes Assessment - Assessment Merits Inpatient Hospitalization: For Immediate Safety, For Stabilization, Consolidate Improvements Inpatient DSM-V Dx: F42.9 - OCD Clinical Impression: 23yo black female, domiciled, employed who presents to ED with selective mutisim , depressed mood with c/o suicidal ideation. She has previous diagnoses of OCD and is being cross titrated from escitalopram to clomipramine. She has had trials of multiple psychopharm agents. She merits hospitalization for immediate safety and stabilization. MHU: Problem List - Patient Problems (1) MDD (major depressive disorder), recurrent episode, severe Current Visit: Yes Status: Chronic Priority: High Code(s): F33.2 - MAJOR DEPRESSV DISORDER, RECURRENT SEVERE W/O PSYCH FEATURES SNOMED Code(s): 073140737699 Comment: titrate medications and encourage programming (2) OCD (obsessive compulsive disorder) Current Visit: Yes Status: Acute Priority: High Code(s): F42.9 - OBSESSIVE -COMPULSIVE DISORDER, UNSPECIFIED SNOMED Code(s): [id number] Comment: titrate clomipramine and add prn hydroxyzine Plan - Plan Treatment Plan: Name: FAUSTINO ISRAEL Birthdate: 1995 [id number] continue acute intensive psychiatric treatment. continue current medications, add sumatriptan prn migraine headache discharge planning to include family and outpatient providers. Continued Medication Management: Continue Outpt Medication Medications: Current Medications Acetaminophen (Tylenol Tab*) 650 mg PO Q4H PRN PRN Reason: PAIN or TEMP > 101 F Last Admin: 04/15/18 19:26 Dose: 650 mg Al Hydrox/Mg Hydrox/Simethicone (Maalox Plus*) 30 ml PO Q4H PRN PRN Reason: INDIGESTION Last Admin: 04/14/18 16:25 Dose: 30 ml Albuterol (Ventolin 2.5 Mg/3 Ml Neb.Sandra*) 2.5 mg INH Q6H PRN PRN Reason: COUGH Albuterol (Ventolin Hfa Inhaler*) 1 puff INH Q4HR PRN PRN Reason: SOB/WHEEZING Bupropion HCl (Wellbutrin Xl *) 150 mg PO DAILY [facility]; Protocol Last Admin: 04/16/18 09:56 Dose: 150 mg Clomipramine HCl (Clomipramine (Nf)) 50 mg PO BEDTIME [facility]I Last Admin: 04/15/18 20:47 Dose: 50 mg Clomipramine HCl (Clomipramine (Nf)) 25 mg PO DAILY [facility]; Protocol Last Admin: 04/16/18 09:56 Dose: 25 mg Cyanocobalamin (Vitamin B12 Tab*) 1,000 mcg PO DAILY [facility] Last Admin: 04/16/18 09:56 Dose: 1,000 mcg Ethinyl Estradiol/Norethindrone (Junel 1.5/30 (Nf)) 1 tab PO BEDTIME [facility] Last Admin: 04/15/18 20:48 Dose: Not Given Fluticasone/Vilanterol (Breo Ellipta Mdi 200/25(Nf)) 1 puff INH DAILY [facility] Last Admin: 04/16/18 09:59 Dose: Not Given Gabapentin (Neurontin Cap(*)) 600 mg PO TID [facility] Last Admin: 04/16/18 12:20 Dose: 600 mg Hydroxyzine HCl (Atarax Tab*) 50 mg PO Q4H PRN PRN Reason: ANXIETY Magnesium Oxide (Magox 400 Tab*) 400 mg PO DAILY [facility] Last Admin: 04/16/18 09:56 Dose: 400 mg Multivitamins (Theragran Tab*) 1 tab PO DAILY [facility] Last Admin: 04/16/18 09:56 Dose: 1 tab Nicotine (Nicotine Inhaler*) 10 mg INH Q2H PRN PRN Reason: CRAVING - Discharge Plan Discharge Plan: Outpatient Follow Up Outpatient Program: [facility]
[2018-04-16] MEDS ORDERED: SUMAtriptan TAB* 50 MG PO PRN (17:05)
[2018-04-16] MEDS: CLOMIPRAMINE 25 MG PO SCH (21:42)
[2018-04-16] MEDS: Norethindrone/Eth Est 1.5/30NF 1 TAB TAB PO SCH (21:45)
[2018-04-16] MEDS: hydrOXYzine HCL TAB* 50 MG PO PRN (21:47)
[2018-04-17] MEDS: Magnesium Oxide TAB* 400 MG PO SCH (08:47)
[2018-04-17] MEDS: PTO:Fluticasone/Vilanterol MDI(NF) 200/25 MDI INH SCH (08:47)
[2018-04-17] MEDS: Gabapentin CAP(*) 300 MG PO SCH ×3 (08:48→21:03)
[2018-04-17] MEDS: BuPROPion XL* 150 MG TAB.XL PO SCH (08:48)
[2018-04-17] MEDS: Vitamin THERAPEUTIC TAB PO SCH (08:48)
[2018-04-17] MEDS: Cyanocobalamin TAB* 500 MCG PO SCH (08:48)
[2018-04-17] MEDS: CMCS ClomiPRAMINE (NF) 25 MG CAP PO SCH (08:49)
[2018-04-17] MEDS: hydrOXYzine HCL TAB* 50 MG PO PRN ×2 (14:19→21:04)
--- NOTE | 2018-04-17 17:20 | PN ---
Subjective - Subjective Date of Service: 04/17/18 Service Type: 25673 Hosp care 15 min low complexity Subjective: Patient is well-groomed and speaking to staff and peers. She is participating in unit routines. Patient endorses improvement in mood. She endorses worrisome internal conflict regarding her job. She states she wants to be able to increase her workload in order to help her coworker who has medical problems. However, she understands the need for having personal boundaries. Patient also endorses being disappointed that a couple of the groups on the unit were not on topic. Objective - Appearance Appearance: Well Developed/Nourished Dysmorphic Features: No Hygiene: Normal Grooming: Well Kept - Behavior Psychomotor Activities: Normal Exhibits Abnormal Movement: No - Attitude and Relatedness Attitude and Relatedness: Cooperative Eye Contact: Good - Speech Quality: Unpressured Latencies: Normal Quantity: Appropriate - Mood Patient's Decription of Mood: "Okay" - Affect Observed Affect: Good Affect Consistent with: Euthymia - Thought Process Patient's Thought Process: Coherent, Goal Directed Thought Content: Yes Passive Wish - vague, No Suicidal Planning, No Homicidal Ideation, No Paranoid Ideation - Sensorium Experiencing Hallucinations: No, Sensorium is Clear Type of Hallucinations: Visual: No, Auditory: No, Command: No - Level of Consciousness Level of Consciousness: Alert Orientation: Yes Intact, Yes Orientated to Time, Yes Orientated to Place, Yes Orientated to Person - Impulse Control Impulse Control: Intact - Insight and Judgement Insight and Judgement: Good - Group Participation Particating in Group Activities: Yes - Medication Management Medication Management Adherence: Yes Assessment - Assessment Merits Inpatient Hospitalization: For Immediate Safety, For Stabilization, For Discharge Planning Inpatient DSM-V Dx: F42.9 - OCD Clinical Impression: 23yo black female, domiciled, employed who presents to ED with selective mutisim , depressed mood with c/o suicidal ideation. She has previous diagnoses of OCD and is being cross titrated from escitalopram to clomipramine. She has had trials of multiple psychopharm agents. She merits hospitalization for immediate safety and stabilization. MHU: Problem List - Patient Problems (1) MDD (major depressive disorder), recurrent episode, severe Current Visit: Yes Status: Chronic Priority: High Code(s): F33.2 - MAJOR DEPRESSV DISORDER, RECURRENT SEVERE W/O PSYCH FEATURES SNOMED Code(s): 662056696052 Comment: titrate medications and encourage programming (2) OCD (obsessive compulsive disorder) Current Visit: Yes Status: Acute Priority: High Code(s): F42.9 - OBSESSIVE -COMPULSIVE DISORDER, UNSPECIFIED SNOMED Code(s): [id number] Comment: titrate clomipramine and add prn hydroxyzine Plan - Plan Treatment Plan: Name: FAUSTINO ISRAEL Birthdate: 1995 [id number] continue acute intensive psychiatric treatment. may decrease to q30min observation and allow staff pass. continue current medications, add sumatriptan prn migraine headache discharge planning to include family and outpatient providers. Continued Medication Management: Continue Outpt Medication Medications: Current Medications Acetaminophen (Tylenol Tab*) 650 mg PO Q4H PRN PRN Reason: PAIN or TEMP > 101 F Last Admin: 04/15/18 19:26 Dose: 650 mg Al Hydrox/Mg Hydrox/Simethicone (Maalox Plus*) 30 ml PO Q4H PRN PRN Reason: INDIGESTION Last Admin: 04/14/18 16:25 Dose: 30 ml Albuterol (Ventolin 2.5 Mg/3 Ml Neb.Sandra*) 2.5 mg INH Q6H PRN PRN Reason: COUGH Albuterol (Ventolin Hfa Inhaler*) 1 puff INH Q4HR PRN PRN Reason: SOB/WHEEZING Bupropion HCl (Wellbutrin Xl *) 150 mg PO DAILY [facility]I; Protocol Last Admin: 04/17/18 08:48 Dose: 150 mg Clomipramine HCl (Clomipramine (Nf)) 50 mg PO BEDTIME [facility]I Last Admin: 04/16/18 21:42 Dose: 50 mg Clomipramine HCl (Clomipramine (Nf)) 25 mg PO DAILY [facility]I; Protocol Last Admin: 04/17/18 08:49 Dose: 25 mg Cyanocobalamin (Vitamin B12 Tab*) 1,000 mcg PO DAILY [facility] Last Admin: 04/17/18 08:48 Dose: 1,000 mcg Fluticasone/Vilanterol (Breo Ellipta Mdi 200/25(Nf)) 1 puff INH DAILY [facility] Last Admin: 04/17/18 08:47 Dose: 1 puff Gabapentin (Neurontin Cap(*)) 600 mg PO TID [facility] Last Admin: 04/17/18 12:33 Dose: 600 mg Hydroxyzine HCl (Atarax Tab*) 50 mg PO Q4H PRN PRN Reason: ANXIETY Last Admin: 04/17/18 14:19 Dose: 50 mg Magnesium Oxide (Magox 400 Tab*) 400 mg PO DAILY [facility] Last Admin: 04/17/18 08:47 Dose: 400 mg Multivitamins (Theragran Tab*) 1 tab PO DAILY [facility] Last Admin: 04/17/18 08:48 Dose: 1 tab Nicotine (Nicotine Inhaler*) 10 mg INH Q2H PRN PRN Reason: CRAVING Pto Nf Med: [place] 1/ (20 Oral Bcp) 1 dose PO BEDTIME [facility] Sumatriptan Succinate (Imitrex Tab*) 50 mg PO DAILY PRN PRN Reason: MIGRAINE HEADACHE - Discharge Plan Discharge Plan: Outpatient Follow Up Outpatient Program: [facility]
--- NOTE | 2018-04-17 17:24 | PN ---
MHU: Group Therapy Note - Service Type Service Type: [id number] Group Psychotherapy - Medication Education Group: Patient was attentive and participatory in group, and remained in good behavioral control. Patient expressed positive insights regarding relevant treatment interventions. Patient stated understanding of material discussed and had appropriate questions.
[2018-04-17] MEDS: CLOMIPRAMINE 25 MG PO SCH (21:03)
[2018-04-17] MEDS: NORETHINDRONE ACETATE PO SCH (21:06)
[2018-04-17] MEDS: ETHINYL ESTRADIOL PO SCH (21:06)
[2018-04-18] MEDS: hydrOXYzine HCL TAB* 50 MG PO PRN (06:25)
[2018-04-18] MEDS: Cyanocobalamin TAB* 500 MCG PO SCH (08:56)
[2018-04-18] MEDS: Gabapentin CAP(*) 300 MG PO SCH ×3 (08:56→21:09)
[2018-04-18] MEDS: Vitamin THERAPEUTIC TAB PO SCH (08:57)
[2018-04-18] MEDS: BuPROPion XL* 150 MG TAB.XL PO SCH (08:57)
[2018-04-18] MEDS: CMCS ClomiPRAMINE (NF) 25 MG CAP PO SCH (08:57)
[2018-04-18] MEDS: Magnesium Oxide TAB* 400 MG PO SCH (08:57)
[2018-04-18] MEDS: PTO:Fluticasone/Vilanterol MDI(NF) 200/25 MDI INH SCH (08:59)
--- NOTE | 2018-04-18 15:15 | PN ---
Subjective - Subjective Date of Service: 04/18/18 Service Type: [id number] Hosp care 15 min low complexity Subjective: Patient is increasingly interactive in unit programming. She completed an MMPI and Dr Bland discussed results with her. Please refer to his report. Patient in lying in bed upon approach. She reports continued anxiety related to feeling overwhelmed with life stressors. She reports efficacy with hydroxyzine. Assessment - Assessment Inpatient DSM-V Dx: F42.9 - OCD Clinical Impression: 23yo black female, domiciled, employed who presents to ED with selective mutisim , depressed mood with c/o suicidal ideation. She has previous diagnoses of OCD and is being cross titrated from escitalopram to clomipramine. She has had trials of multiple psychopharm agents. She merits hospitalization for immediate safety and stabilization. MHU: Problem List - Patient Problems (1) MDD (major depressive disorder), recurrent episode, severe Current Visit: Yes Status: Chronic Priority: High Code(s): F33.2 - MAJOR DEPRESSV DISORDER, RECURRENT SEVERE W/O PSYCH FEATURES SNOMED Code(s): 198809940661 Comment: titrate medications and encourage programming (2) OCD (obsessive compulsive disorder) Current Visit: Yes Status: Acute Priority: High Code(s): F42.9 - OBSESSIVE -COMPULSIVE DISORDER, UNSPECIFIED SNOMED Code(s): [id number] Comment: titrate clomipramine and add prn hydroxyzine Plan - Plan Treatment Plan: Name: FAUSTINO ISRAEL Birthdate: 1995 [id number] continue acute intensive psychiatric treatment. may decrease to q30min observation and allow staff pass. increase clomipramine to 50mg BID. discharge planning to include family and outpatient providers. Medications: Current Medications Acetaminophen (Tylenol Tab*) 650 mg PO Q4H PRN PRN Reason: PAIN or TEMP > 101 F Last Admin: 04/15/18 19:26 Dose: 650 mg Al Hydrox/Mg Hydrox/Simethicone (Maalox Plus*) 30 ml PO Q4H PRN PRN Reason: INDIGESTION Last Admin: 04/14/18 16:25 Dose: 30 ml Albuterol (Ventolin 2.5 Mg/3 Ml Neb.Sandra*) 2.5 mg INH Q6H PRN PRN Reason: COUGH Albuterol (Ventolin Hfa Inhaler*) 1 puff INH Q4HR PRN PRN Reason: SOB/WHEEZING Bupropion HCl (Wellbutrin Xl *) 150 mg PO DAILY [facility]; Protocol Last Admin: 04/18/18 08:57 Dose: 150 mg Clomipramine HCl (Clomipramine (Nf)) 25 mg PO DAILY [facility]; Protocol Last Admin: 04/18/18 08:57 Dose: 25 mg Clomipramine HCl (Clomipramine (Nf)) 50 mg PO BID [facility] Cyanocobalamin (Vitamin B12 Tab*) 1,000 mcg PO DAILY [facility] Last Admin: 04/18/18 08:56 Dose: 1,000 mcg Fluticasone/Vilanterol (Breo Ellipta Mdi 200/25(Nf)) 1 puff INH DAILY [facility] Last Admin: 04/18/18 08:59 Dose: 1 puff Gabapentin (Neurontin Cap(*)) 600 mg PO TID [facility] Last Admin: 04/18/18 08:56 Dose: 600 mg Hydroxyzine HCl (Atarax Tab*) 50 mg PO Q4H PRN PRN Reason: ANXIETY Last Admin: 04/18/18 06:25 Dose: 50 mg Magnesium Oxide (Magox 400 Tab*) 400 mg PO DAILY [facility] Last Admin: 04/18/18 08:57 Dose: 400 mg Multivitamins (Theragran Tab*) 1 tab PO DAILY [facility] Last Admin: 04/18/18 08:57 Dose: 1 tab Nicotine (Nicotine Inhaler*) 10 mg INH Q2H PRN PRN Reason: CRAVING Pto Nf Med: [place] 1/ (20 Oral Bcp) 1 dose PO BEDTIME [facility] Last Admin: 04/17/18 21:06 Dose: 1 dose Sumatriptan Succinate (Imitrex Tab*) 50 mg PO DAILY PRN PRN Reason: MIGRAINE HEADACHE
[2018-04-18] MEDS: CMCS:ClomiPRAMINE (NF) 25 MG CAP PO SCH (21:08)
[2018-04-18] MEDS: ETHINYL ESTRADIOL PO SCH (21:09)
[2018-04-18] MEDS: NORETHINDRONE ACETATE PO SCH (21:09)
[2018-04-19 08:10] VITALS: BP 125/84
[2018-04-19] MEDS: PTO:Fluticasone/Vilanterol MDI(NF) 200/25 MDI INH SCH (08:36)
[2018-04-19] MEDS: BuPROPion XL* 150 MG TAB.XL PO SCH (08:36)
[2018-04-19] MEDS: Gabapentin CAP(*) 300 MG PO SCH ×2 (08:37→14:28)
[2018-04-19] MEDS: CMCS:ClomiPRAMINE (NF) 25 MG CAP PO SCH (08:37)
[2018-04-19] MEDS: Cyanocobalamin TAB* 500 MCG PO SCH (08:37)
[2018-04-19] MEDS: Vitamin THERAPEUTIC TAB PO SCH (08:38)
[2018-04-19] MEDS: Magnesium Oxide TAB* 400 MG PO SCH (08:38)
[2018-04-19] MEDS: hydrOXYzine HCL TAB* 50 MG PO PRN (12:05)
--- NOTE | 2018-04-22 15:42 | DS ---
CC: [facility]; [facility] DISCHARGE SUMMARY: DATE OF ADMISSION: 04/14/18 DATE OF DISCHARGE: 04/19/18 SUPERVISING PSYCHIATRIST: Eugene Jenkins MD DISCHARGE DIAGNOSES: 1. Major depressive disorder. 2. Obsessive-compulsive disorder. CONDITION AT THE TIME OF DISCHARGE: Improved. The patient is euthymic with a bright affect. She is interactive with peers and staff. She denies suicidal ideations. She reports improved mood. She i s no longer presenting or selectively mute. The patient has been safe on all checks and tolerated me dication changes. She reports readiness for discharge and was given a note to be excused from work un til mid week next week. MENTAL STATUS EXAM: The patient is a 23-year-old black female who appears younger than stated age. She is well groomed, with her hair done, she is wearing glasses and her own clothing. The patient is alert and oriented x3, eye contact is good. Speech is soft and articulate. Mood is euthymic with br ight affect. No abnormal psychomotor activity noted. Thought process is logical, goal directed, and coherent. Thought content is negative for SI, passive wish or SIP urges. She denies AH, VH, o r delusions. Insight and judgment are good. Fund of knowledge is adequate. INSTRUCTIONS GIVEN TO PATIENT: A. Medications: 1. Bupropion XL 150 mg p.o. q.a.m. 2. Clomipramine 50 mg p.o. b.i.d. 3. Hydroxyzine 50 mg p.o. b.i.d., p.r.n. The above medications including vitamin B12 were electronically prescribed to [facility]. The patient will continue the following medications through her primary care provider. 1. Ventolin inhaler 1 puff q.4-hour p.r.n. 2. Ventolin nebulizer as needed. 3. Chelated magnesium 27 mg p.o. b.i.d. 4. Breo-Ellipta 1 puff daily. 5. Gabapentin 600 mg p.o. t.i.d. 6. Magnesium oxide 400 mg daily. 7. control pills. 8. Sumatriptan 50 mg p.o. daily p.r.n. for migraine headache. B. Diet: Regular. C. Activity: Ambulation as tolerated. Tobacco cessation is not applicable and there is no pending labs or diagnostic studies. D. Followup care. The patient will follow up with [facility] and has an appointment with h er therapist, Rick, on 04/22/18 at 10 a.m. and her psychiatrist nurse practitioner, Altagracia Kurtz on 04/24/18 at 12:30. She can follow up with her primary care provider, Dr. Gregory, at [facility] as needed. E. Substance use followup is not applicable. HOSPITAL COURSE: Part A: Reason for admission: The patient presented to the emergency department w ith selective mutism, increased depression, and suicidal ideation. This was her first psychiatric ho spitalization. The patient was admitted on voluntary status, code status is full. Part B: Psychiatric treatment rendered: The patient initially participated in interview with christopher mohr via writing her answers. She was thorough and appeared to be a good historian. The patient e ndorsed recurrent depressed mood, suicidal ideation, hypersomnia, fatigue. She reported previous jena gnosis of depressive disorder, ADHD, and considerations for autism spectrum disorder. The first few days of admission, the patient was seclusive, lying in bed primarily the entire day. She agreed to r einstate medications and trial bupropion XL formulation as she had been taking the immediate relief f ormulation. She was in the midst of a titration of clomipramine, we increased this to 50 mg p.o. b.i .d. She tolerated this very well. The patient was eventually fully participatory in groups. She wa s very knowledgeable about psychoeducational topics. She was increasingly interactive verbally and e ventually, no longer selectively mute. The patient tolerated medication changes. Denied side effect s. She reported significant headaches with her history of migraine headaches and took sumatriptan wi th good effect. The patient was noted to have improved objective findings of depression. Everyday, she was asked abo ut readiness for discharge and she stated "I don't know," she stated that she is used to being hospit alized on medical floors and being told when she is going to be discharged rather than being part of that decision. On day of discharge, the patient was agreeable to following up with current outpatient providers. On day of discharge, she reported readiness for discharge and denies suicidal ideations or urges for se lf-harm. LABORATORY DATA WHILE HOSPITALIZED: CBC with a slightly elevated WBC, sickle cell screening was nega tive, chemistry within normal limits. Hemoglobin A1c 5.7, lipid panel within normal limits, TSH 2.28 , hCG negative. Urinalysis noteworthy for blood. The patient was menstruating at that time. Toxico logy positive for opioids, which was consistent with medication she received in the emergency departm ent, otherwise unremarkable. MINNIE STEINER, CONFIGURATION ENGINEER [id number]/CPS #: [id number]
== END 2018-04-19 14:15 | disposition home or self-care (01) | DRG 751 ==
LOC: ED 23:54 → BSU 04-14 05:38
PROVIDERS: ADMIT Psychiatry & Neurology Psychiatry; ATTEND Psychiatry & Neurology Psychiatry
PROC: GZHZZZZ Group Psychotherapy (ICD-10-PCS; principal; 2018-04-14)
DX: F33.2 Major depressive disorder, recurrent severe without psychotic features (principal); R45.851 Suicidal ideations; F42.9 Obsessive-compulsive disorder, unspecified; J45.909 Unspecified asthma, uncomplicated; F40.240 Claustrophobia; F90.9 Attention-deficit hyperactivity disorder, unspecified type; K21.9 Gastro-esophageal reflux disease without esophagitis; R51 Headache; E66.9 Obesity, unspecified; F41.8 Other specified anxiety disorders; F94.0 Selective mutism; Z83.3 Family history of diabetes mellitus; Z83.6 Family history of other diseases of the respiratory system; Z80.7 Family history of other malignant neoplasms of lymphoid, hematopoietic and related tissues; Z68.28 Body mass index [BMI] 28.0-28.9, adult; Z91.5 Personal history of self-harm; Z81.8 Family history of other mental and behavioral disorders; Z81.3 Family history of other psychoactive substance abuse and dependence; Z91.410 Personal history of adult physical and sexual abuse
CPT/HCPCS: 36415; 80053; 80061; 80307; 80320; 80329; 81003; 81015; 83036; 83735; 84443; 84702; 85025; 85660; 87086; 90853; 99222; 99231; 99232; 99283; A9270-GY; G0480

== ENCOUNTER 2018-04-22 12:02 | Emergency (ER) | payer OTHER ==
--- NOTE | 2018-04-22 12:32 | ED ---
Psychiatric Complaint - HPI Summary HPI Summary: Pt is a 23 y/o female who presents to the ED c/o SI. As per [id number], she was sent here by her therapist for her SI. Her plan is to slit her wrists with a knife at home. Pt is reluctant to speak or make eye contact. She was hospitalized last week for depression and SI and was discharged 3 days ago. Since then, she states nothing has happened in particular to make her more depressed. LNMP 1 week ago. She also c/o headache. Pt denies any drug or alcohol use. She has a hx of suicide attempt. - History Of Current Complaint Chief Complaint: [facility]entalHealth Time Seen by Provider: 04/22/18 12:13 Hx Obtained From: Patient, Family/Public Transit Bus Driver - [id number] Hx Last Menstrual Period: on control Onset/Duration: Gradual Onset, Lasting Weeks, Worse Since Timing: Constant Character: Depressed Aggravating Factor(s): Nothing Alleviating Factor(s): Nothing Associated Signs And Symptoms: Positive: Social Withdrawal Related History: Positive For: Prior Psychiatric Issues Has Suicidal: Reports: Thoughts, With A Plan, Has Prior Attempt(s) Has Homicidal: Denies: Thoughts - Allergies/Home Medications Allergies/Adverse Reactions: Allergies Allergy/AdvReac Type Severity Reaction Status Date / Time No Known Allergies Allergy Verified 04/22/18 12:09 Home Medications: Home Medications Albuterol 2.5MG/3ML (0.083%)* [Ventolin 2.5 MG/3 ML NEB.MAGALY*] 2.5 mg INH Q6H PRN 04/22/18 [History Confirmed 04/22/18] Capsaicin 0.025% CREAM* [Zostrix 0.025% CREAM*] 1 applic TOPICAL DAILY 04/22/18 [History Confirmed 04/22/18] Cyanocobalamin (Vitamin B-12) [Vitamin B12] 5,000 mcg SL DAILY 04/22/18 [ History Confirmed 04/22/18] Escitalopram (NF) [Lexapro 10 mg (NF)] 10 mg PO DAILY 04/22/18 [History Confirmed 04/22/18] Meloxicam(NF) [Mobic(NF)] 7.5 mg PO BID 04/22/18 [History Confirmed 04/22/18] Trolamine Salicylate/Aloe Vera [Aspercreme/Aloe] 10 % TOPICAL BID 04/22/18 [ History Confirmed 04/22/18] PMH/Surg Hx/FS Hx/Imm Hx Endocrine/Hematology History: Reports: Hx Anemia Denies: Hx Diabetes Cardiovascular History: Denies: Hx Hypertension, Hx Pacemaker/ICD Respiratory History: Reports: Hx Asthma GI History: Reports: Hx Gastroesophageal Reflux Disease History: Reports: Other Problems/Disorders - Heavy periods Denies: Hx Renal Disease Musculoskeletal History: Reports: Hx Orthopedic Injury - Dislocation of R kneecap, Other Musculoskeletal History - JOINT HYPERMOBILITY Sensory History: Reports: Hx Contacts or Glasses Denies: Hx Hearing Aid, Other Sensory Impairments Opthamlomology History: Reports: Hx Contacts or Glasses Denies: Other Sensory Impairments Neurological History: Reports: Hx Headaches Psychiatric History: Reports: Hx Anxiety, Hx Attention Deficit Hyperactivity Disorder, Hx Depression, Hx Panic Disorder - ATTACKS-NOT DUE TO CLAUSTROPHOBIA, Hx Community Mental Health Tx, Hx Suicide Attempt Denies: Hx Eating Disorder, Hx Post Traumatic Stress Disorder, Hx Inpatient Treatment, Hx Schizophrenia, Hx of Violent Episodes Against Others, Hx Substance Abuse - Surgical History Surgery Procedure, Year, and Place: no surg hx Infectious Disease History: No Infectious Disease History: Denies: Traveled Outside the [place] in Last 30 Days - Family History Known Family History: Positive: Diabetes, Respiratory Disease - Hx Asthma- sister and cousins, Hx COPD-father, chronic bronchitis-Aunt, Blood Disorder - Sister - anemia, receives blood transfusions, Other - Mother - multiple myeloma - Social History Alcohol Use: None Hx Substance Use: No Substance Use Type: Reports: None Hx Tobacco Use: No Smoking Status (MU): Never Smoked Tobacco Have You Smoked in the Last Year: No Review of Systems Positive: Headache Positive: Depressed, Other - SI All Other Systems Reviewed And Are Negative: Yes Physical Exam - Summary Physical Exam Summary: Appearance: Well appearing, no pain distress Skin: warm, dry, reflects adequate perfusion Head/face: normal Eyes: EOMI, BLAIRE ENT: mucous membranes moist Neck: supple, non-tender Respiratory: CTA, breath sounds present Cardiovascular: RRR, pulses symmetrical Abdomen: non-tender, soft Bowel Sounds: present Musculoskeletal: normal, strength/ROM intact Neuro: normal, sensory motor intact, A&Ox3 Psych: very flat affect, withdrawn, barely audible voice, SI Triage Information Reviewed: Yes Vital Signs On Initial Exam: Initial Vitals Temp Pulse Resp BP Pulse Ox 97.9 F 115 12 138/83 98 04/22/18 12:04 04/22/18 12:04 04/22/18 12:04 04/22/18 12:04 04/22/18 12:04 Vital Signs Reviewed: Yes Diagnostics - Vital Signs Vital Signs Temp Pulse Resp BP Pulse Ox 04/22/18 12:04 97.9 F 115 12 138/83 98 - Laboratory Lab Statement: Any lab studies that have been ordered have been reviewed, and results considered in the medical decision making process. Re-Evaluation - Re-Evaluation First Eval Re-Evaluation Time: 12:30 Change: Unchanged Comment: Pt is medically cleared for a MHE. Course/Dx - Course Course Of Treatment: Patient was medically cleared for psychiatric evaluation and is pending disposition by mental health at time of sign out. - Differential Dx/Clinical Impression Differential Diagnosis/HQI/PQRI: Positive: Acute Psychosis, Alcohol Intoxication , Bipolar Disorder, Depression Provider Diagnosis: Depression Discharge - Sign-Out/Discharge Documenting (check all that apply): Sign-Out Patient Signing out patient TO: Kristie Oliver - Discharge Plan Condition: Stable Referrals: Lester Gregory MD [Primary Care Provider] - - Billing Disposition and Condition Condition: STABLE - Attestation Statements Document Initiated by Scribe: Yes Documenting Scribe: Marie Kim Provider For Whom Scribe is Documenting (Include Credential): Cameron Santos MD Scribe Attestation: Marie Armendariz, scribed for Cameron Santos MD on 04/22/18 at 1923. Scribe Documentation Reviewed: Yes Provider Attestation: The documentation as recorded by the Marie huynh accurately reflects the service I personally performed and the decisions made by me, Cameron Santos MD
--- NOTE | 2018-04-22 20:43 | ED ---
Progress - Progress Note Progress Note: This patient was signed out to Dr. Oliver, from Dr. Santos, pending dispo, awaiting MHE. The patient will be signed out to Dr. Ovalles awaiting MHE and dispo. - Consult/PCP Time Called: 16:00 Re-Evaluation - Re-Evaluation First Eval Re-Evaluation Time: 12:30 Change: Unchanged Comment: Pt is medically cleared for a MHE. Course/Dx - Course Course Of Treatment: This patient was signed out to Dr. Oliver, from Dr. Santos , pending dispo, awaiting MHE. The patient will be signed out to Dr. Ovalles awaiting MHE and dispo. - Diagnoses Provider Diagnoses: Depression Discharge - Sign-Out/Discharge Documenting (check all that apply): Sign-Out Patient, Receiving Sign-Out Signing out patient TO: Sanchez Ovalles Receiving patient FROM: Cameron Santos - Discharge Plan Condition: Stable Referrals: Lester Gregory MD [Primary Care Provider] - - Attestation Statements Document Initiated by Scribe: Yes Documenting Scribe: Aditya Sofia Provider For Whom Scribe is Documenting (Include Credential): Kristie Oliver MD Scribe Attestation: Aditya Armendariz, scribed for Kristie Oliver MD on 04/23/18 at 0626.
[2018-04-23] MEDS ORDERED: Ibuprofen TAB* 400 MG PO ONE (01:59)
[2018-04-23] MEDS ORDERED: oxyCODONE/Acetamin 5/325 MG* TAB PO ONE (05:06)
--- NOTE | 2018-04-23 08:28 | PN ---
ED Flex Patient Progress Note Date of Service: 04/22/18 Subjective: This is a 23 year-old F who is pending admission to [facility] / transfer to another psychiatric facility / discharge to home / or being observed secondary to SI. Pt. examined in room 22 around 0820. She is resting comfortably. Offers no complaints other than being unhappy with her breakfast. Objective: Vitals: Most recent vital signs documented below. General NAD, Alert and oriented x3. Laboratory: Current laboratory results documented below. Assessment: Pending MHE. Plan: Pending psychiatric or medical consultation to observe / transfer / admit / discharge will follow up daily . Vital Signs Temp Pulse Resp BP Pulse Ox 97.9 F 118 18 123/87 100 04/22/18 17:14 04/22/18 17:14 04/23/18 05:22 04/22/18 17:14 04/22/18 17:14 Lab Results - Entire Visit 04/22/18 12:50 Urine Opiates Screen None detected Ur Barbiturates Screen None detected Ur Phencyclidine Scrn None detected Ur Amphetamines Screen None detected U Benzodiazepines Scrn None detected Urine Cocaine Screen None detected U Cannabinoids Screen None detected
[2018-04-23 08:44] VITALS: BP 122/87
--- NOTE | 2018-04-23 08:49 | PN ---
Subjective - Subjective Date of Service: 04/23/18 Service Type: [id number] Hosp care 15 min low complexity Subjective: Patient awake, lying on bed, pleasant upon approach. She c/o arthraligia and poor sleep. She reports discussing events leading to admission and being asked about suicidal ideation with her therapist yesterday. Patient states she denies active SI or passive wish at this time. She is offered voluntary admission to [facility]. She states she is "tired" and wants to go home. We discuss upcoming obligations, including work and appointments. Objective - Appearance Appearance: Well Developed/Nourished Dysmorphic Features: No Hygiene: Normal Grooming: Well Kept - Behavior Psychomotor Activities: Normal Exhibits Abnormal Movement: No - Attitude and Relatedness Attitude and Relatedness: Cooperative Eye Contact: Good - Speech Quality: Unpressured Latencies: Normal Quantity: Appropriate - Mood Patient's Decription of Mood: "tired" - Affect Observed Affect: Good Affect Consistent with: Euthymia - Thought Process Patient's Thought Process: Coherent, Goal Directed Thought Content: No Passive Wish, No Suicidal Planning, No Homicidal Ideation, No Paranoid Ideation - Sensorium Experiencing Hallucinations: No, Sensorium is Clear Type of Hallucinations: Visual: No, Auditory: No, Command: No - Level of Consciousness Level of Consciousness: Alert Orientation: Yes Intact, Yes Orientated to Time, Yes Orientated to Place, Yes Orientated to Person - Impulse Control Impulse Control: Intact - Insight and Judgement Insight and Judgement: Fair Plan - Plan Treatment Plan: Name: FAUSTINO ISRAEL Birthdate: 1995 [id number] discharge from ED, follow up with outpatient providers as scheduled. Continued Medication Management: Continue Outpt Medication - Discharge Plan Discharge Plan: Outpatient Follow Up [facility]
--- NOTE | 2018-04-23 09:08 | ED ---
Progress - Progress Note Progress Note: This patient was signed out from Dr. Oliver at shift change, pending disposition , awaiting MHE. Pt had a mental health evaluation and his case was reviewed by Dr. Hensley, psychiatrist. Dr. Hensley cleared the pt for discharge. Pt will be discharged home with outpatient follow up with Lyndsey Kurtz NP at [facility]. Dx: unspecified depressive disorder. Re-Evaluation - Re-Evaluation First Eval Re-Evaluation Time: 12:30 Change: Unchanged Comment: Pt is medically cleared for a MHE. Course/Dx - Diagnoses Provider Diagnoses: Depressive disorder Discharge - Sign-Out/Discharge Documenting (check all that apply): Patient Departure - Discharge home, Receiving Sign-Out Receiving patient FROM: Kristie Oliver - Discharge Plan Condition: Stable Disposition: HOME Referrals: Lester Gregory MD [Primary Care Provider] - - Attestation Statements Document Initiated by Scribe: Yes Documenting Scribe: Alexandria Campbell Provider For Whom Scribe is Documenting (Include Credential): Sanchez Ovalles MD Scribe Attestation: Alexandria Armendariz, scribed for Sanchez Ovalles MD on 04/23/18 at 1001.
== END 2018-04-23 11:31 | disposition home or self-care (01) ==
LOC: ED 12:02
DX: F32.9 Major depressive disorder, single episode, unspecified (principal); J45.909 Unspecified asthma, uncomplicated
CPT/HCPCS: 36415; 80307; 99283; A9270-GY

== ENCOUNTER 2018-05-06 10:08 | Emergency (ER) | payer OTHER ==
[2018-05-06 10:15] VITALS: BP 116/84
--- NOTE | 2018-05-06 10:17 | UC ---
Hand/Wrist HPI - HPI Summary HPI Summary: 23 yo female presents with RIGHT hand pain. She tells me that 2 days ago she went to throw a heavy book onto a table and when she raised her hand from her waist she hit his hand against the edge of the table. Has continued pain at the 2nd MC. Has not taken anything for her discomfort. Denies numbness or tingling or decreased ROM. - History Of Current Complaint Chief Complaint: UCUpperExtremity Stated Complaint: R HAND INJURY Hx Obtained From: Patient Hx Last Menstrual Period: 04/22/18 Onset/Duration: Sudden Onset Severity Initially: Moderate Severity Currently: Moderate Pain Intensity: 7 Pain Scale Used: 0-10 Numeric - Allergies/Home Medications Allergies/Adverse Reactions: Allergies Allergy/AdvReac Type Severity Reaction Status Date / Time No Known Allergies Allergy Verified 05/06/18 10:15 PMH/Surg Hx/FS Hx/Imm Hx Respiratory History: Asthma Neurological History: Migraine Psychological History: Anxiety, Depression - Surgical History Surgical History: None Surgery Procedure, Year, and Place: no surg hx - Family History Known Family History: Positive: Diabetes, Respiratory Disease - Hx Asthma- sister and cousins, Hx COPD-father, chronic bronchitis-Aunt, Blood Disorder - Sister - anemia, receives blood transfusions, Other - Mother - multiple myeloma - Social History Lives: With Family Alcohol Use: None Substance Use Type: None Smoking Status (MU): Never Smoked Tobacco Have You Smoked in the Last Year: No - Immunization History Most Recent Influenza Vaccination: unknown Most Recent Pneumonia Vaccination: never Review of Systems All Other Systems Reviewed And Are Negative: Yes Constitutional: Positive: Negative Skin: Positive: Negative Respiratory: Positive: Negative Cardiovascular: Positive: Negative Neurovascular: Positive: Negative Musculoskeletal: Positive: Other: - Right hand pain Neurological: Positive: Negative Psychological: Positive: Negative Physical Exam - Summary Physical Exam Summary: GENERAL: NAD. WDWN. No pain distress. SKIN: No rashes, sores, lesions, or open wounds. CHEST: No accessory muscle use. Breathing comfortably and in no distress. CV: Pulses intact radial and ulnar. Cap refill <2seconds MSK: RIGHT HAND: Mild TTP at 2nd MC. FROM without pain. Strength 5/5 including strategic accounts manager strength. No edema or obvious bony deformities. No snuffbox tenderness. NEURO: Alert. Sensations intact hand and all fingers. PSYCH: Age appropriate behavior. Triage Information Reviewed: Yes Vital Signs: Initial Vital Signs Temp 97.3 F 05/06/18 10:11 Pulse 100 05/06/18 10:11 Resp 20 05/06/18 10:11 BP 116/84 05/06/18 10:11 Pulse Ox 100 05/06/18 10:11 Vital Signs Reviewed: Yes Hand/Wrist Course/Dx - Course Course Of Treatment: XR: IMPRESSION: NO EVIDENCE FOR FRACTURE. Suspect contusion. Advised to RICE and take ibuprofen for her discomfort. F/u if symptoms persist. - Differential Dx/Diagnosis Provider Diagnosis: Hand contusion Discharge - Sign-Out/Discharge Documenting (check all that apply): Patient Departure All imaging exams completed and their final reports reviewed: Yes - Discharge Plan Condition: Stable Disposition: HOME Patient Education Materials: Contusion in Adults (ED) Referrals: Lester Gregory MD [Primary Care Provider] - Additional Instructions: If you develop a fever, shortness of breath, chest pain, new or worsening symptoms - please call your PCP or go to the ED. 1) Rest, Ice and elevate your hand as much as possible to reduce pain and swelling 2) May take tylenol or ibuprofen for your discomfort 3) If your symptoms persist please be rechecked - Billing Disposition and Condition Condition: STABLE Disposition: Home
== END 2018-05-06 11:20 | disposition home or self-care (01) ==
LOC: UCEAST 10:08
DX: S60.221A Contusion of right hand, initial encounter (principal); W22.03XA Walked into furniture, initial encounter; Y93.89 Activity, other specified; Y92.9 Unspecified place or not applicable
CPT/HCPCS: 99212; G0463

== ENCOUNTER 2018-07-18 16:27 | Emergency (ER) | payer OTHER ==
[2018-07-18 16:42] VITALS: BP 129/93
--- NOTE | 2018-07-18 16:59 | UC ---
Abdominal Pain Male HPI - History of Current Complaint Chief Complaint: UCGI Stated Complaint: ABDOMINAL PAIN Time Seen by Provider: 07/18/18 16:53 Pain Intensity: 6 Pain Scale Used: 0-10 Numeric - Allergies/Home Medications Allergies/Adverse Reactions: Allergies Allergy/AdvReac Type Severity Reaction Status Date / Time No Known Allergies Allergy Verified 07/18/18 16:42 PMH/Surg Hx/FS Hx/Imm Hx Previously Healthy: Yes - Surgical History Surgical History: None Surgery Procedure, Year, and Place: no surg hx - Family History Known Family History: Positive: Diabetes, Respiratory Disease - Hx Asthma- sister and cousins, Hx COPD-father, chronic bronchitis-Aunt, Blood Disorder - Sister - anemia, receives blood transfusions, Other - Mother - multiple myeloma - Social History Alcohol Use: Rare Substance Use Type: None Smoking Status (MU): Never Smoked Tobacco Have You Smoked in the Last Year: No - Immunization History Most Recent Influenza Vaccination: unknown Most Recent Pneumonia Vaccination: never Physical Exam Vital Signs: Initial Vital Signs Temp 98.6 F 07/18/18 16:36 Pulse 105 07/18/18 16:36 Resp 16 07/18/18 16:36 BP 129/93 07/18/18 16:36 Pulse Ox 100 07/18/18 16:36 Discharge - Discharge Plan Referrals: Lester Gregory MD [Primary Care Provider] -
--- NOTE | 2018-07-18 17:03 | UC ---
Complaint Female HPI - HPI Summary HPI Summary: 1 week of nausea and stomach aches. threw up yesterday. had loose stools as well. able to eat but food does not stay down. drinking liquids but feels nauseas so its hard. - History Of Current Complaint Chief Complaint: UCGI Stated Complaint: ABDOMINAL PAIN Time Seen by Provider: 07/18/18 16:53 Hx Obtained From: Patient Hx Last Menstrual Period: unknown Pain Intensity: 6 Pain Scale Used: 0-10 Numeric - Allergies/Home Medications Allergies/Adverse Reactions: Allergies Allergy/AdvReac Type Severity Reaction Status Date / Time No Known Allergies Allergy Verified 07/18/18 16:42 PMH/Surg Hx/FS Hx/Imm Hx Previously Healthy: Yes - Surgical History Surgical History: None Surgery Procedure, Year, and Place: no surg hx - Family History Known Family History: Positive: Diabetes, Respiratory Disease - Hx Asthma- sister and cousins, Hx COPD-father, chronic bronchitis-Aunt, Blood Disorder - Sister - anemia, receives blood transfusions, Other - Mother - multiple myeloma - Social History Alcohol Use: Rare Substance Use Type: None Smoking Status (MU): Never Smoked Tobacco Have You Smoked in the Last Year: No - Immunization History Most Recent Influenza Vaccination: unknown Most Recent Pneumonia Vaccination: never Review of Systems All Other Systems Reviewed And Are Negative: Yes Skin: Negative: Rash Gastrointestinal: Positive: Abdominal Pain, Vomiting, Diarrhea Genitourinary: Negative: Dysuria, Hematuria, Frequency, Urgency Musculoskeletal: Negative: Myalgia Neurological: Negative: Headache, Weakness Physical Exam Triage Information Reviewed: Yes Appearance: Well-Appearing Vital Signs: Initial Vital Signs Temp 98.6 F 07/18/18 16:36 Pulse 105 07/18/18 16:36 Resp 16 07/18/18 16:36 BP 129/93 07/18/18 16:36 Pulse Ox 100 07/18/18 16:36 Vital Signs Reviewed: Yes Respiratory Exam: Normal Abdomen Description: Positive: Nontender, Soft. Negative: CVA Tenderness (R), CVA Tenderness (L), Distended, Guarding Neurological: Positive: Alert Psychological: Positive: Normal Response To Family - father here w/ her Skin: Negative: Rashes Complaint Female Dx - Course Course Of Treatment: 1 wk nausea,stomach ache and 3 episodes of vomiting. vitals good and exam unremarkable. No acute abdomen. Urine hcg:neg. UA showed ketones which is expected if she's unable to keep food/liquid down. it also showed leuks and blood. will tx for presumed UTI. If not improving should f/u w pcp. - Differential Dx/Diagnosis Provider Diagnosis: UTI (urinary tract infection), Gastritis Discharge - Sign-Out/Discharge Documenting (check all that apply): Patient Departure All imaging exams completed and their final reports reviewed: No Studies - Discharge Plan Condition: Good Disposition: HOME Prescriptions: Sulfamethox/Trimethoprim DS* [Bactrim DS 800/160 TAB*] 1 tab PO BID 3 Days #6 tab Patient Education Materials: Gastroenteritis (DC) Referrals: Lester Gregory MD [Primary Care Provider] - Additional Instructions: if not improving withing 2-3 days please follow up with your pcp. - Billing Disposition and Condition Condition: GOOD Disposition: Home
== END 2018-07-18 17:55 | disposition home or self-care (01) ==
LOC: UCEAST 16:27
DX: N39.0 Urinary tract infection, site not specified (principal); K29.70 Gastritis, unspecified, without bleeding
CPT/HCPCS: 81003; 84702; 87086; 99212; G0463

== ENCOUNTER 2018-07-19 19:45 | Emergency (ER) | payer OTHER ==
[2018-07-19 19:54] VITALS: BP 137/95
[2018-07-19] MEDS ORDERED: Ondansetron ODT TAB* 4 MG PO ONE (20:18)
[2018-07-19] MEDS ORDERED: Omeprazole CAP (NF) 20 MG CAP.DR PO ONE (20:18)
--- NOTE | 2018-07-19 20:18 | UC ---
Abdominal Pain Female HPI - HPI Summary HPI Summary: 23 YO FEMALE WITH C/O UPPER ABDOMINAL PAIN AND NAUSEA FOR 1 WEEK. SHE HAD VOMITED 3 TIMES OVR THE COURSE OF 5-6 DAYS, SEEN HERE YESTERDAY AND STARTED ON ABX FOR UTI. VOMITED TWICE TODAY. PAIN IS IN THE EPIGASTRIUM, MIDLINE. NO FEVER. DENIES RUQ PAIN. PAIN WORSE WITH EATING, BETTER WHEN NOT EATING. NO RADIATION OF THE PAIN. NO DIARRHEA, NO URINARY SX. NO PRIOR ABD SURGERIES. - History of Current Complaint Chief Complaint: UCAbdominalPain Stated Complaint: NAUSEA, AND ABDOMINAL PAIN Time Seen by Provider: 07/19/18 20:03 Hx Last Menstrual Period: 2 MONTHS AGO (ON CONTINUOUS BC) Pain Intensity: 8 Allergies/Adverse Reactions: Allergies Allergy/AdvReac Type Severity Reaction Status Date / Time No Known Allergies Allergy Verified 07/19/18 19:54 Home Medications: Home Medications ClomiPRAMINE (NF) [Clomipramine (NF)] 07/19/18 [History] PMH/Surg Hx/FS Hx/Imm Hx Previously Healthy: Yes Respiratory History: Asthma - Surgical History Surgical History: None Surgery Procedure, Year, and Place: no surg hx - Family History Known Family History: Positive: Diabetes, Respiratory Disease - Hx Asthma- sister and cousins, Hx COPD-father, chronic bronchitis-Aunt, Blood Disorder - Sister - anemia, receives blood transfusions, Other - Mother - multiple myeloma - Social History Alcohol Use: Occasionally Substance Use Type: None Smoking Status (MU): Never Smoked Tobacco Have You Smoked in the Last Year: No - Immunization History Most Recent Influenza Vaccination: unknown Most Recent Pneumonia Vaccination: never Review of Systems All Other Systems Reviewed And Are Negative: Yes Constitutional: Positive: Negative Skin: Positive: Negative Eyes: Positive: Negative ENT: Positive: Negative Respiratory: Positive: Negative Cardiovascular: Positive: Negative Gastrointestinal: Positive: Abdominal Pain, Vomiting, Nausea. Negative: Diarrhea Genitourinary: Positive: Negative Motor: Positive: Negative Neurovascular: Positive: Negative Musculoskeletal: Positive: Negative Neurological: Positive: Negative Psychological: Positive: Negative Is Patient Immunocompromised?: No Physical Exam Triage Information Reviewed: Yes Appearance: No Pain Distress, Well-Nourished, Ill-Appearing - MILD Vital Signs: Initial Vital Signs Temp 96.8 F 07/19/18 19:49 Pulse 99 07/19/18 19:49 Resp 16 07/19/18 19:49 BP 137/95 07/19/18 19:49 Pulse Ox 100 07/19/18 19:49 Vital Signs Reviewed: Yes Eye Exam: Normal Eyes: Positive: Conjunctiva Clear ENT: Positive: Pharynx normal, TMs normal Neck exam: Normal Neck: Positive: Supple Respiratory Exam: Normal Respiratory: Positive: Lungs clear, Normal breath sounds, No respiratory distress Cardiovascular: Positive: RRR Abdomen Description: Positive: Other: - MILD EPIGASTRIC TENDERNESS TO PALPATION.. Negative: Distended, Guarding Bowel Sounds: Positive: Present Musculoskeletal Exam: Normal Musculoskeletal: Positive: Strength Intact, ROM Intact Neurological Exam: Normal Neurological: Positive: Alert, Muscle Tone Normal Psychological Exam: Normal Psychological: Positive: Normal Response To Family, Age Appropriate Behavior Skin Exam: Normal Abd Pain Female Course/Dx - Course Course Of Treatment: WILL TREAT WITH OMEPRAZOLE AND ZOFRAN. DISCUSSED GALL BLADDER SX. AT THIS TIME, DOES NOT CLINICALLY APPEAR TO BE A GALL BLADDER PROBLEM. ALSO DISCUSSED GOING TO THE EMERGENCY DEPARTMENT IF NOT IMPROVED OR WORSE. - Differential Dx/Diagnosis Provider Diagnosis: Epigastric pain, Nausea & vomiting Discharge - Sign-Out/Discharge Documenting (check all that apply): Patient Departure All imaging exams completed and their final reports reviewed: No Studies - Discharge Plan Condition: Stable Disposition: HOME Prescriptions: Omeprazole 20 mg PO BID #30 capsule. Ondansetron ODT TAB* [Zofran 4 MG Odt TAB*] 4 mg PO Q6H PRN #10 tab.odt PRN Reason: Nausea Patient Education Materials: Acute Nausea and Vomiting (ED), Epigastric Pain ( ED) Referrals: Lester Gregory MD [Primary Care Provider] - Additional Instructions: FOLLOW UP WITH YOUR PRIMARY CARE DOCTOR. GO TO THE EMERGENCY DEPARTMENT FOR ANY WORSENING OF YOUR CONDITION; PAIN, FEVER , DEHYDRATION OR QUESTIONS OR CONCERNS. - Billing Disposition and Condition Condition: STABLE Disposition: Home
[2018-07-19] MEDS ORDERED: Pantoprazole TAB * 40 MG TAB ONE (20:32)
== END 2018-07-19 20:42 | disposition home or self-care (01) ==
LOC: UCEAST 19:45
DX: R11.2 Nausea with vomiting, unspecified (principal); R10.13 Epigastric pain; J45.909 Unspecified asthma, uncomplicated
CPT/HCPCS: 99212; A9270-GY; G0463

== ENCOUNTER 2018-07-21 19:30 | Emergency (ER) | payer OTHER ==
[2018-07-21] MEDS ORDERED: NS 0.9% 1000 ML** 1,000 ML IV ONE (21:30)
[2018-07-21] MEDS ORDERED: Metoclopramide IV* 5 MG/ML 2 ML VIAL IV SLOW PU ONE (21:31)
[2018-07-21] MEDS ORDERED: Ketorolac INJ* 30 MG/ML 1 ML VIAL IV PUSH ONE (21:31)
--- NOTE | 2018-07-21 21:38 | ED ---
Abdominal Pain/Female - HPI Summary HPI Summary: This patient is a 23 year old F presenting to [facility] with a chief complaint of abdominal pain since 3 days ago. The patient was seen at Urgent Care 3 days ago and was diagnosed with a UTI. The patient rates the pain 7/10 in severity. Symptoms aggravated by nothing. Symptoms alleviated by nothing. Patient reports nausea and emesis x5 today. She notes her last BM was 2 days ago, which she notes is abnormal for her. Patient denies diarrhea. Patient has been taking Sulfa. LNMP 2 months ago and patient notes she takes continuous control. - History of Current Complaint Chief Complaint: EDAbdPain Stated Complaint: NAUSEA/ABD PAIN Time Seen by Provider: 07/21/18 21:24 Hx Obtained From: Patient Hx Last Menstrual Period: 2 MONTHS AGO (ON CONTINUOUS BC) Onset/Duration: Gradual Onset, Lasting Days - 3 days, Still Present Timing: Constant Severity Initially: Moderate Severity Currently: Moderate Pain Intensity: 7 Pain Scale Used: 0-10 Numeric Location: Diffuse Aggravating Factor(s): Nothing Alleviating Factor(s): Nothing Associated Signs and Symptoms: Positive: Constipation, Nausea, Vomiting. Negative: Diarrhea Allergies/Adverse Reactions: Allergies Allergy/AdvReac Type Severity Reaction Status Date / Time No Known Allergies Allergy Verified 07/21/18 21:38 PMH/Surg Hx/FS Hx/Imm Hx Endocrine/Hematology History: Reports: Hx Anemia Denies: Hx Diabetes Cardiovascular History: Denies: Hx Hypertension, Hx Pacemaker/ICD Respiratory History: Reports: Hx Asthma GI History: Reports: Hx Gastroesophageal Reflux Disease History: Reports: Other Problems/Disorders - Heavy periods Denies: Hx Renal Disease Musculoskeletal History: Reports: Hx Orthopedic Injury - Dislocation of R kneecap, Other Musculoskeletal History - JOINT HYPERMOBILITY Sensory History: Reports: Hx Contacts or Glasses Denies: Hx Hearing Aid, Other Sensory Impairments Opthamlomology History: Reports: Hx Contacts or Glasses Denies: Other Sensory Impairments Neurological History: Reports: Hx Headaches Psychiatric History: Reports: Hx Anxiety, Hx Attention Deficit Hyperactivity Disorder, Hx Depression, Hx Panic Disorder - ATTACKS-NOT DUE TO CLAUSTROPHOBIA, Hx Community Mental Health Tx, Hx Suicide Attempt Denies: Hx Eating Disorder, Hx Post Traumatic Stress Disorder, Hx Inpatient Treatment, Hx Schizophrenia, Hx of Violent Episodes Against Others, Hx Substance Abuse - Surgical History Surgery Procedure, Year, and Place: no surg hx Infectious Disease History: No Infectious Disease History: Denies: Traveled Outside the [place] in Last 30 Days - Family History Known Family History: Positive: Diabetes, Respiratory Disease - Hx Asthma- sister and cousins, Hx COPD-father, chronic bronchitis-Aunt, Blood Disorder - Sister - anemia, receives blood transfusions, Other - Mother - multiple myeloma - Social History Alcohol Use: Occasionally Hx Substance Use: No Substance Use Type: Reports: None Hx Tobacco Use: No Smoking Status (MU): Never Smoked Tobacco Have You Smoked in the Last Year: No Review of Systems Negative: Fever Negative: Epistaxis Negative: Chest Pain Negative: Cough Positive: Abdominal Pain, Vomiting, Nausea, Other - constipation. Negative: Diarrhea All Other Systems Reviewed And Are Negative: Yes Physical Exam - Summary Physical Exam Summary: VITAL SIGNS: Reviewed. GENERAL: Patient is a well-developed and nourished FEMALE who is lying comfortable in the stretcher. Patient is not in any acute respiratory distress. HEAD AND FACE: No signs of trauma. No ecchymosis, hematomas or skull depressions. No sinus tenderness. EYES: PERRLA, EOMI x 2, No injected conjunctiva, no nystagmus. EARS: Hearing grossly intact. Ear canals and tympanic membranes are within normal limits. MOUTH: Oropharynx within normal limits. NECK: Supple, trachea is midline, no adenopathy, no JVD, no carotid bruit, no c- spine tenderness, neck with full ROM. CHEST: Symmetric, no tenderness at palpation LUNGS: Clear to auscultation bilaterally. No wheezing or crackles. CVS: Regular rate and rhythm, S1 and S2 present, no murmurs or gallops appreciated. ABDOMEN: Soft, non-tender. No signs of distention. No rebound no guarding, and no masses palpated. Bowel sounds are normal. EXTREMITIES: FROM in all major joints, no edema, no cyanosis or clubbing. NEURO: Alert and oriented x 3. No acute neurological deficits. Speech is normal and follows commands. SKIN: Dry and warm Triage Information Reviewed: Yes Vital Signs On Initial Exam: Initial Vitals Temp Pulse Resp BP Pulse Ox 98.7 F 98 16 131/92 99 07/21/18 19:33 07/21/18 19:33 07/21/18 19:33 07/21/18 19:33 07/21/18 19:33 Vital Signs Reviewed: Yes Diagnostics - Vital Signs Vital Signs Temp Pulse Resp BP Pulse Ox 07/21/18 19:33 98.7 F 98 16 131/92 99 - Laboratory Result Diagrams: 07/21/18 21:59 07/21/18 21:59 Lab Statement: Any lab studies that have been ordered have been reviewed, and results considered in the medical decision making process. - Radiology Abdomen XR Radiology Interpretation Completed By: ED Physician - Dr. Oliver, pending official report Summary of Radiographic Findings: increased stool, constipation - CT CT abd/Pelvis CT Interpretation Completed By: Radiologist Summary of CT Findings: no acute abnormality. Dr. Oliver has reviewed this report. Abdominal Pain Fem Course/Dx - Course Course Of Treatment: This patient is a 23 year old F presenting to [facility] with a chief complaint of abdominal pain since 3 days ago. Patient reports nausea and emesis x5 today. She notes her last BM was 2 days ago, which she notes is abnormal for her. Abdomen XR reveals, per ED physician, increased stool, constipation. CT Abd/Pelvis reveals, per radiologist, no acute abnormality. ED physician has reviewed this radiology report. Test results with no significant abnormalities. In the ED course the patient was given contrast, Toradol, IV fluids, and Reglan. Patient will be discharged home with follow up from PCP. Dx abd pain and constipation. The patient is agreeable with this plan. - Diagnoses Provider Diagnoses: Abdominal pain, Constipation Discharge - Sign-Out/Discharge Documenting (check all that apply): Patient Departure - discharge home Patient Received Moderate/Deep Sedation with Procedure: No - Discharge Plan Condition: Stable Disposition: HOME Patient Education Materials: Constipation (ED), Abdominal Pain (ED) Referrals: Lester Gregory MD [Primary Care Provider] - Additional Instructions: Follow up with primary care physician in 1-2 days. Return to the emergency department with any new or worsening symptoms. - Attestation Statements Document Initiated by Scribe: Yes Documenting Scribe: Olga Borges Provider For Whom Scribe is Documenting (Include Credential): Kristie Oliver MD Scribe Attestation: Olga Armendariz, scribed for Kristie Oliver MD on 07/22/18 at 0105. Status of Scribe Document: Ready
[2018-07-21 22:05] LABS: ABS Basophils 0 10^3/ul (0-0.2); ABS Eosinophils 0.1 10^3/ul (0-0.6); ABS Lymphocytes 1.3 10^3/ul (1.0-4.8); ABS Monocytes 0.8 10^3/ul (0-0.8); ABS Neutrophils 9.7 10^3/ul (1.5-7.7); ABS Nucleated RBC 0 10^3/ul; Eosinophil % 0.5 %; Hematocrit 44 % (35-47); Hemoglobin 14.9 g/dl (12.0-16.0); Lymphocyte % 11.1 %; Mean Corpuscular HGB Conc 34 g/dl (31-36); Mean Corpuscular Hemoglobin 30 pg (27-31); Mean Corpuscular Volume 89 fL (80-97); Mean Platelet Volume 8.4 fL (7.4-10.4); Nucleated Red Blood Cells % 0; Platelet Count 175 10^3/ul (150-450); Red Blood Count 4.96 10^6/ul (4.00-5.40); Red Cell Distribution Width 13 % (10.5-15); White Blood Count 11.8 10^3/ul (3.5-10.8)
[2018-07-21 22:23] LABS: ALT 30 U/L (7-52); AST 21 U/L (13-39); Albumin 4.5 g/dL (3.2-5.2); Albumin/Globulin Ratio 1.3 (1-3); Alkaline Phosphatase 79 U/L (34-104); Amylase 130 U/L (29-103); Anion Gap 11 mmol/L (2-11); BUN/Creatinine Ratio 7.3 (8-20); Blood Urea Nitrogen 8 mg/dL (6-24); C Reactive Protein 10.44 mg/L (<8.01); CO2 Carbon Dioxide 22 mmol/L (22-32); Calcium 9.4 mg/dL (8.6-10.3); Chloride 103 mmol/L (101-111); EGFR African American 74.6 (>60); EGFR Non-African American 61.7 (>60); Globulin 3.4 g/dL (2-4); Glucose 83 mg/dL (70-100); Potassium 4.1 mmol/L (3.5-5.0); Sodium 136 mmol/L (135-145); Total Protein 7.9 g/dL (6.4-8.9)
[2018-07-21 22:29] LABS: HCG Pregnancy < 0.60 mIU/mL
[2018-07-21] MEDS ORDERED: Iohexol 300* (CONTRAST) 10 ML SDV IV ONE (23:14)
[2018-07-22] MEDS ORDERED: Magnesium CITRATE* 300 ML BTL PO ONE (00:58)
[2018-07-22] MEDS ORDERED: Bisacodyl SUPP* 10 MG SUPP PR ONE (00:58)
[2018-07-22 01:12] VITALS: BP 125/89
== END 2018-07-22 01:10 | disposition home or self-care (01) ==
LOC: ED 19:30
DX: R10.84 Generalized abdominal pain (principal); K59.00 Constipation, unspecified; R11.2 Nausea with vomiting, unspecified
CPT/HCPCS: 36415; 74019; 74177; 80053; 82150; 83690; 83735; 84702; 85025; 86140; 96374; 96375; 99284; A9270-GY; J1885; J2765; Q9967